=== PATIENT | female | born 1960 | race Caucasian/White ===

== ENCOUNTER → 2019-08-10 14:08 | Outpatient (BNVA) | payer MEDICARE, SELFPAY | PROVIDERS: Family Provider Internal Medicine; PCP Internal Medicine; Visit Provider Internal Medicine Rheumatology | DX: M34.0 Progressive systemic sclerosis (principal); M81.0 Age-related osteoporosis without current pathological fracture; Z23 Encounter for immunization; Z79.899 Other long term (current) drug therapy; R06.09 Other forms of dyspnea; R00.2 Palpitations; M35.8 Other specified systemic involvement of connective tissue; J84.89 Other specified interstitial pulmonary diseases; F17.210 Nicotine dependence, cigarettes, uncomplicated | CPT/HCPCS: 80053; 85007; 85027; 90686; 99214; G0008 ==

== ENCOUNTER 2019-08-20 09:06 | Outpatient (CLI) | payer MEDICARE, BC, SELFPAY ==
--- NOTE | 2019-08-20 09:30 | USCV_ITS ---
Rayray Degroot Age: 58 Gender: F : 1960 Exam Date: 08/20/2019 09:27 Ordering Phys: Poornima Gutierrez MD Technologist: Delbert Moon [place] [facility] [place]: SCLEADEMA BP: / HR: Rhythm: Sinus Technical Quality: Good MEASUREMENTS (Male / Female) Normal Values 2D ECHO LV Diastolic Diameter PLAX 4.0 cm 4.2 - 5.9 / 3.9 - 5.3 cm LV Systolic Diameter PLAX 2.0 cm IVS Diastolic Thickness 0.7 cm 0.6 - 1.0 / 0.6 - 0.9 cm IVS Systolic Thickness 1.2 cm LVPW Diastolic Thickness 0.8 cm 0.6 - 1.0 / 0.6 - 0.9 cm LVPW Systolic Thickness 0.8 cm LVOT Diameter 2.0 cm LV Ejection Fraction 2D Teich 82.4 % LV Ejection Fraction MOD 2C 49.2 % LV Ejection Fraction 2C AL 49.5 % LA Diameter 2.9 cm Aorta at Sinotubular Diameter 2.1 cm M-MODE LV Diastolic Diameter MM 4.4 cm 4.2 - 5.9 / 3.9 - 5.3 cm LV Systolic Diameter MM 2.6 cm LV Ejection Fraction MM Teich 70.1 % IVS Diastolic Thickness MM 0.8 cm 0.6 - 1.0 / 0.6 - 0.9 cm IVS Systolic Thickness MM 1.3 cm LVPW Diastolic Thickness MM 1.0 cm 0.6 - 1.0 / 0.6 - 0.9 cm LVPW Systolic Thickness MM 1.4 cm RV Diastolic Diameter MM 1.3 cm Aortic Annulus Diameter 2.7 cm LA Ao Ratio MM 1.1 MV E Point Septal Separation 1.2 cm DOPPLER AV Peak Velocity 134.0 cm/s LVOT Peak Velocity 97.0 cm/s AV Area Cont Eq vti 2.2 cm squared AV Area Cont Eq pk 2.3 cm squared MV Area PHT 3.7 cm squared Mitral E to A Ratio 0.9 MV E' Velocity 14.0 cm/s Mitral E to MV E' Ratio 4.5 Mitral E to LV E' Lateral Ratio 4.9 Mitral E to LV E' Septal Ratio 4.3 TR Peak Velocity 167.0 cm/s TR Peak Gradient 11.2 mmHg TV Peak E Velocity 76.0 cm/s Right Atrial Pressure 3.0 mmHg Pulmonary Artery Systolic Pressu 14.2 mmHg PV Peak Velocity 121.0 cm/s FINDINGS Left Ventricle Normal left ventricular size, systolic function and wall thickness, with no regional wall motion abnormalities. Normal left ventricular wall thickness. Normal diastolic filling pattern. Left ventricular ejection fraction is estimated at 55 %. Right Ventricle Normal right ventricular size and systolic function. Normal right ventricular systolic pressure. Right Atrium The right atrium is normal in size. Left Atrium The left atrium is normal in size. Mitral Valve Structurally normal mitral valve without significant stenosis or prolapse. There is no mitral regurgitation. Aortic Valve Structurally normal aortic valve without significant sclerosis or stenosis. There is no aortic regurgitation. Tricuspid Valve Structurally normal tricuspid valve without significant stenosis or regurgitation. Pulmonary artery systolic pressure is normal. Pulmonic Valve Pulmonic valve not well visualized. Pericardium Normal pericardium without effusion. Aorta Normal ascending aorta dimension. CONCLUSIONS Normal left ventricular size, systolic function and wall thickness, with no regional wall motion abnormalities. Normal left ventricular wall thickness. Normal diastolic filling pattern. Left ventricular ejection fraction is estimated at 55 %. No change from the previous 2 studies dictated 10/17/2016 and 11/17/2017. Dr. Matthew Ritter MD (Electronically Signed) Final Date: 20 August 2019 14:41 S
== END 2019-08-20 09:07 | disposition home or self-care (01) ==
PROVIDERS: Family Provider Internal Medicine; PCP Internal Medicine; Visit Provider Internal Medicine Rheumatology
DX: R06.09 Other forms of dyspnea (principal); R00.2 Palpitations; M34.9 Systemic sclerosis, unspecified
CPT/HCPCS: 93306

== ENCOUNTER → 2019-09-01 11:32 | Outpatient (BNVA) | payer MEDICARE, BC, SELFPAY | PROVIDERS: Family Provider Internal Medicine; PCP Internal Medicine; Visit Provider Urology | DX: N39.0 Urinary tract infection, site not specified (principal) | CPT/HCPCS: 81001; 87077; 87086; 87186 ==

== ENCOUNTER 2019-09-02 08:10 | Outpatient (CLI) | payer MEDICARE, BC, SELFPAY ==
--- NOTE | 2019-09-02 08:30 | CT_ITS ---
WS: [id number] HIGH-RESOLUTION CT CHEST TECHNIQUE: Noncontrast CT of the chest with coronal and sagittal reformatted images. High-resolution technique with inspiratory and expiratory imaging. Prone inspiratory imaging. CLINICAL INFORMATION: restrictive lung disease COMPARISON: CT chest and December 24, 2016 DLP: 622.[address] scans at [facility] use at least one of these dose optimization techniques: automat ed exposure control; mA and/or kV adjustment per patient size (includes targeted exams where dose is matched to clinical indication); or iterative reconstruction. FINDINGS: Mild chronic emphysematous changes. No significant interstitial lung disease seen today. No honeycomb ing to indicate interstitial pulmonary fibrosis. No acute appearing infiltrates. No consolidation or pleural fluid. No significant air trapping on the expiratory imaging. Lung bases are better aerated t renae compared to previous. Chronic granulomatous disease with calcified hilar and mediastinal lymph nodes. Multiple calcified gr anulomas. No mediastinal or hilar lymphadenopathy. Adrenal glands are normal. No axillary lymphadenop athy. Normal thyroid gland. Normal thoracic spine. Pulmonary nodule comparison to . Again seen are a few subcentimeter noncalcified pulmonary no dules in the right greater than left lungs. Largest noncalcified nodules measure 4 to 6 mm in the rig ht lower lobe and right middle lobe. These are unchanged since 2017 CT/CT chest [facility] [id number] IMPRESSION: 1. No significant interstitial lung disease. Lung bases are well aerated today . No evidence of honeycombing to indicate interstitial pulmonary fibrosis. 2. Mild chronic emphysematous changes. 3. No mediastinal or hilar lymphadenopathy. 4. Chronic granulomatous disease. 5. A few subcentimeter noncalcified pulmonary nodules unchanged since 2017. Re commend 12 month follow-up.
== END 2019-09-02 08:11 | disposition home or self-care (01) ==
LOC: RADWPI 08:13
PROVIDERS: Family Provider Internal Medicine; PCP Internal Medicine; Visit Provider Internal Medicine Critical Care Medicine
DX: M34.0 Progressive systemic sclerosis (principal)
CPT/HCPCS: 71250

== ENCOUNTER 2019-09-09 09:12 | Emergency (ER) | payer MEDICARE, BC, SELFPAY ==
[2019-09-09 09:28] VITALS: BP 121/66; PULSE 93; RESP 18; TEMP 37.1; O2SAT 97; BMI 21.6
--- NOTE | 2019-09-09 09:39 | XR_ITS ---
WS: [id number] XR chest 1V portable [id number] REASON FOR EXAM: right sided chest pain FINDINGS: The heart mediastinum interfaces normal. The lung vargas are well aerated. No pneumonia, pleural effusion, pulmonary edema, pneumothorax, or m ass effect. The hilum is and apices are normal. No osseous abnormalities. XR/XR chest 1V portable [id number] IMPRESSION: Negative chest for active pathology.
--- NOTE | 2019-09-09 09:39 | ECG_ITS ---
Measurements Intervals [place] Rate: 74 P: 74 FL: 155 QRS: 71 QRSD: 89 T: 48 QT: 372 QTc: 415 SINUS RHYTHM POSSIBLE RIGHT VENTRICULAR CONDUCTION DELAY [RSR (QR) IN V1/V2] Compared to ECG 11/14/2017 13:33:53 No significant changes Electronically Signed On 09-09-2019 16:57:11 [employer] WORK[employer] by Matthew Ritter M.D. [email or web address]
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
--- NOTE | 2019-09-09 09:40 | ED_ITS ---
HPI - Chest Pain General: Chief Complaint: Chest Pain Stated Complaint: stabing pain in chest and back Time Seen by Provider: 09/09/19 09:33 History of Present Illness: HPI narrative: Patient presents with a right sided musculoskeletal/chest pain that started 0 600 today. Patient denies shortness of breath diaphoresis patient does have pain with range of motion right arm to her right chest area hurts for her to take a deep breath hurts for her to lay down. Has history of scleroderma, GERD ,anxiety, SVT. Had CT of chest done last week. MD complaint: chest discomfort Onset (ago): hour(s) Timing of current episode: episodic Prior episodes: No Onset: awoke with symptoms Pain location: right chest Pain radiation: back and right shoulder Severity: moderate Quality: sharp Relieving factors: remaining still Exacerbating factors: movement Associated symptoms: Reports no associated symptoms; Deny abdominal pain, dyspnea, fever(s), nausea or vomiting Treatment prior to arrival: none Review of Systems Const: Denies: fever, chills or body aches Eyes: Denies: change in vision or blurry vision ENMT: Denies: throat pain or nasal congestion Card: Reports: chest pain; Denies: shortness of breath on exertion Resp: Denies: shortness of breath, productive cough or non-productive cough GI: Denies: abdominal pain, nausea or vomiting Musc: Denies: extremity pain Skin/Breast: Denies: rash Neuro: Denies: headache Psych: Denies: anxiety or depression Bakari/Lymph: Denies: easy bruising PFSH ED PFSH: Social History Smoking and tobacco status: current every day smoker cigarettes Packs smoked per day: 0.5 Years cigarettes smoked: 40 Quit status (tobacco): considering quitting Smoking risk assessment/counseling performed?: Yes Alcohol intake: never Lives independently: Yes Marital status: Single Current occupational status: retired History of recent travel: No Current gender identity: Female Physical Exam Const: COMMON NORMALS: no apparent distress, average body habitus and oriented x3 HENMT: COMMON NORMALS: normocephalic HEAD & SCALP: normal to inspection and normocephalic FACE & SINUS: normal facial exam Eye: COMMON NORMALS: conjunctivae normal GENERAL EYE: normal appearance of both eyes CONJUNCTIVA: Yes conjunctivae normal Neck/C-Spine: COMMON NORMALS: no JVD Chest: COMMONS NORMALS: inspection of chest normal CHEST: Yes other (Zorha frazier has reproducible pain right upper central chest. Has pain into the muscle of the right arm. Has pain in her right thoracic backside area.) Resp: COMMON NORMALS: normal respiratory effort and clear to auscultation bilaterally AUSCULTATION: clear to auscultation bilaterally Cardio: COMMON NORMALS: no JVD, regular rate and regular rhythm RATE: regular rate RHYTHM: regular rhythm GI: COMMON NORMALS: normal to inspection, nondistended, normoactive bowel sounds Extremity: COMMON NORMALS: normal to inspection and full ROM Neuro: COMMON NORMALS: oriented x3 Course Vital Signs: Vital signs: Vital Signs Temperature 98.7 F 09/09/19 09:28 Pulse Rate 76 09/09/19 09:48 Respiratory Rate 16 09/09/19 09:48 Blood Pressure 108/64 09/09/19 09:48 Pulse Oximetry 97 09/09/19 09:48 MDM - Chest Pain EKG Data^: EKG 1: EKG interpretation date: 09/09/19 EKG interpretation time: 09:48 Interpretation: NSR Discharge Plan Discharge Prescriptions: No Action nitrofurantoin monohyd/m-cryst [Macrobid] 100 mg capsule 100 mg PO BID Qty: 28 RF: 2 ergocalciferol (vitamin D2) 50,000 unit tablet 50,000 unit PO .WEEKLY RF: 0 celecoxib [Celebrex] 200 mg capsule 200 mg PO DAILY RF: 0 amitriptyline 25 mg tablet 25 mg PO .AT BEDTIME RF: 0 alprazolam 0.25 mg tablet 0.25 mg PO BID PRNRF: 0 metoprolol tartrate 25 mg tablet 12.5 mg PO BID RF: 0 citalopram 10 mg tablet 10 mg PO DAILY RF: 0 ascorbic acid (vitamin C) 1,000 mg tablet 1 gm PO DAILY RF: 0 multivitamin Tablet 1 tab PO DAILY RF: 0 mycophenolate mofetil [CellCept] 500 mg tablet 1,000 mg PO BID Qty: 120 RF: 2 Forteo 20 mcg/dose - 600 mcg/2.4 mL pen injector 20 mcg SUBCUT DAILY Qty: 2.4 RF: 11 omeprazole 20 mg capsule,delayed release(DR/EC) 20 mg PO BID Qty: 90 RF: 3 Coding Level of Care Code ED Flight Operation Coordinator for Chg Fwd Exam Comprehensive
[2019-09-09 09:48] VITALS: BP 108/64; PULSE 76; RESP 16; O2SAT 97
[2019-09-09] MEDS: ketorolac 60 mg/2 mL INJ IM (10:30)
[2019-09-09 10:52] VITALS: BP 104/44; PULSE 75; RESP 16; O2SAT 95
== END 2019-09-09 10:53 | disposition home or self-care (01) ==
PROVIDERS: Emergency Provider Nurse Practitioner Family; Family Provider Internal Medicine; PCP Internal Medicine
DX: R07.9 Chest pain, unspecified (principal); M25.511 Pain in right shoulder; M54.6 Pain in thoracic spine; F17.210 Nicotine dependence, cigarettes, uncomplicated
CPT/HCPCS: 12345; 71045; 72072; 93005; 96372; 99281; 99283; J1885

== ENCOUNTER → 2019-09-22 14:22 | Outpatient (BNVA) | payer MEDICARE, BC, SELFPAY | PROVIDERS: Family Provider Internal Medicine; PCP Internal Medicine; Visit Provider Specialist | DX: G43.909 Migraine, unspecified, not intractable, without status migrainosus (principal); F17.210 Nicotine dependence, cigarettes, uncomplicated | CPT/HCPCS: 99213 ==

== ENCOUNTER → 2019-11-16 08:48 | Outpatient (BNVA) | payer MEDICARE, BC, SELFPAY | PROVIDERS: Family Provider Internal Medicine; PCP Internal Medicine; Visit Provider Internal Medicine Rheumatology | DX: Z79.899 Other long term (current) drug therapy (principal); Z11.59 Encounter for screening for other viral diseases; Z11.1 Encounter for screening for respiratory tuberculosis; Z72.89 Other problems related to lifestyle | CPT/HCPCS: 36415; 80076; 82565; 85025; 85651; 86140; 86480; 86704; 86803; 87340 ==

== ENCOUNTER 2019-12-08 11:07 | Outpatient (CLI) | payer MEDICARE, BC, SELFPAY ==
--- NOTE | 2019-12-08 13:03 | PFTS_ITS ---
Date of Study:12/08/19 Date of Dictation: MECHANICS: Forced vital capacity (FVC) is Reduced. Forced expiratory volume in one second (FEV1) is Reduced . FEV1/FVC is Normal. FLOW VOLUME LOOP: Narrow. LUNG VOLUMES: Total lung capacity (TLC) isNormal . Residual volume (RV) is Normal . DIFFUSING CAPACITY FOR CARBON MONOXIDE: Normal. INTERPRETATION: The pulmonary function tests are Consistent with nonspecific ventilatory limitation. The spirometry is suggestive of mild restriction however total lung capacity is normal. Lung volumes are normal Gas exchange (DLCO) is Normal . MTDD
== END 2019-12-08 11:08 | disposition home or self-care (01) ==
LOC: RT 11:12
PROVIDERS: PCP Internal Medicine; Visit Provider Internal Medicine Critical Care Medicine
DX: M34.0 Progressive systemic sclerosis (principal)
CPT/HCPCS: 94060; 94726; 94729; J7611

== ENCOUNTER → 2020-03-08 14:42 | Outpatient (BNVA) | payer MEDICARE, BC, SELFPAY | PROVIDERS: PCP Internal Medicine; Visit Provider Internal Medicine | DX: M81.0 Age-related osteoporosis without current pathological fracture (principal); R21 Rash and other nonspecific skin eruption; F17.210 Nicotine dependence, cigarettes, uncomplicated; M34.0 Progressive systemic sclerosis | CPT/HCPCS: 99213 ==

== ENCOUNTER 2020-03-22 15:47 | Outpatient (CLI) | payer MEDICARE, BC, SELFPAY ==
--- NOTE | 2020-03-22 15:57 | MR_ITS ---
WS: [id number] MRI LEFT SHOULDER NONCONTRAST TECHNIQUE: Sagittal T2, coronal T1, T2 and proton density imaging. Axial gradient PDE imaging. CLINICAL INFORMATION: OSTEOPOROSIS COMPARISON: None. FINDINGS: Moderate degenerative arthritis AC joint. Mild downsloping of the acromion. Slight subacromial spurri ng. Rotator cuff is normal in appearance. No full-thickness rotator cuff tears. Normal distal suprasp inatus. Normal infraspinatus. Normal teres minor and subscapularis. Normal biceps tendon in the bicipital groove. Normal biceps labral anchor. Glenoid labrum is normal i n appearance. Mild degenerative fraying of the glenoid labrum. Normal soft tissues. MR/MR shoulder LT wo con* [id number] IMPRESSION: 1. Moderate degenerative arthritis at the AC joint with mild edema. 2. Rotator cuff is normal in appearance. 3. Normal biceps tendon in the bicipital groove. 4. Degenerative fraying of the glenoid labrum.
== END 2020-03-22 15:48 | disposition home or self-care (01) ==
LOC: RADWPI 15:51
PROVIDERS: PCP Internal Medicine; Visit Provider Internal Medicine
DX: M81.0 Age-related osteoporosis without current pathological fracture (principal); M19.012 Primary osteoarthritis, left shoulder; R60.0 Localized edema
CPT/HCPCS: 73221

== ENCOUNTER → 2020-03-28 12:29 | Outpatient (BNVA) | payer MEDICARE, BC, SELFPAY | PROVIDERS: PCP Internal Medicine; Visit Provider Specialist | DX: G62.89 Other specified polyneuropathies (principal); M34.0 Progressive systemic sclerosis; G43.711 Chronic migraine without aura, intractable, with status migrainosus; F17.210 Nicotine dependence, cigarettes, uncomplicated | CPT/HCPCS: 99213 ==

== ENCOUNTER → 2020-04-12 10:55 | Outpatient (BNVA) | payer MEDICARE, BC, SELFPAY | PROVIDERS: PCP Internal Medicine; Visit Provider Specialist | DX: M25.552 Pain in left hip (principal) | CPT/HCPCS: 73502 ==

== ENCOUNTER → 2020-04-13 10:53 | Outpatient (BNVA) | payer MEDICARE, BC, SELFPAY | PROVIDERS: PCP Internal Medicine; Visit Provider Internal Medicine | DX: Z79.899 Other long term (current) drug therapy (principal) | CPT/HCPCS: 36415; 80053; 85025; 85651; 86140; 86160 ==

== ENCOUNTER → 2020-06-07 11:27 | Outpatient (BNVA) | payer MEDICARE, BC, SELFPAY | PROVIDERS: PCP Internal Medicine; Visit Provider Internal Medicine | DX: M34.0 Progressive systemic sclerosis (principal); M81.0 Age-related osteoporosis without current pathological fracture; Z87.310 Personal history of (healed) osteoporosis fracture; F17.210 Nicotine dependence, cigarettes, uncomplicated | CPT/HCPCS: 99213 ==

== ENCOUNTER 2020-06-13 15:06 | Outpatient (CLI) | payer MEDICARE, SELFPAY ==
--- NOTE | 2020-06-13 15:13 | MM_ITS ---
WS: [id number] BILATERAL SCREENING DIGITAL MAMMOGRAM WITH CAD HISTORY: SCREENING COMPARISON: 05/28/2013 and 04/08/2006 Bilateral CC and MLO views submitted. Computer aided detection analyzed. Breast composition: There are scattered areas of fibroglandular density. No suspicious masses, microc alcifications or architectural distortion. MM/[place] [id number] IMPRESSION: BI-RADS: 2-Benign FOLLOW UP: 1 Year Follow-up
--- NOTE | 2020-06-13 15:53 | XR_ITS ---
WS: [id number] SCREENING DEXA SCAN [place] CLINICAL INFORMATION: OSTEOPOROSIS COMPARISON: 2016 FINDINGS: The L1-L4 bone mineral density measures 0.838 g/cm2. This corresponds to a T score score of -2.8 and Z score of -1.3. Left forearm bone mineral density 0.704 g/cm2 with aT score of -2.0 and Z score of -1.0 XR/XR DEXA axial skeleton* [id number] IMPRESSION: Osteoporosis of the lumbar spine. Osteopenia in the forearm.
== END 2020-06-13 15:07 | disposition home or self-care (01) ==
LOC: RADSHAW 15:11
PROVIDERS: PCP Internal Medicine; Visit Provider Family Medicine
DX: Z12.31 Encounter for screening mammogram for malignant neoplasm of breast (principal); M81.0 Age-related osteoporosis without current pathological fracture
CPT/HCPCS: 77067; 77080

== ENCOUNTER → 2020-08-28 09:28 | Outpatient (BNVA) | payer MEDICARE, BC, SELFPAY | PROVIDERS: PCP Internal Medicine; Visit Provider Urology | DX: N39.0 Urinary tract infection, site not specified (principal) | CPT/HCPCS: 81003; 87077; 87086; 87184 ==

== ENCOUNTER → 2020-08-30 13:12 | Outpatient (BNVA) | payer MEDICARE, BC, SELFPAY | PROVIDERS: PCP Internal Medicine; Visit Provider Internal Medicine | DX: M34.0 Progressive systemic sclerosis (principal); M35.89 Other specified systemic involvement of connective tissue; J84.89 Other specified interstitial pulmonary diseases; D89.9 Disorder involving the immune mechanism, unspecified; K21.9 Gastro-esophageal reflux disease without esophagitis; M81.0 Age-related osteoporosis without current pathological fracture; F17.210 Nicotine dependence, cigarettes, uncomplicated | CPT/HCPCS: 99214 ==

== ENCOUNTER 2020-09-05 08:08 | Outpatient (CLI) | payer MEDICARE, BC, SELFPAY ==
--- NOTE | 2020-09-05 08:30 | CT_ITS ---
WS: [id number] CT CHEST TECHNIQUE: Noncontrast CT of the chest with coronal and sagittal reformatted images. CLINICAL INFORMATION: R06.02 - Shortness of breath COMPARISON: CT chest August 2019, November 2017, December 2016 DLP: 571.[address] scans at [facility] use at least one of these dose optimization techniques: automat ed exposure control; mA and/or kV adjustment per patient size (includes targeted exams where dose is matched to clinical indication); or iterative reconstruction. FINDINGS: Mild chronic emphysematous changes. No significant pulmonary infiltrates. No consolidation or pleural fluid. Chronic granulomatous disease with calcified hilar and mediastinal lymph nodes. Multiple calc ified granulomas. No mediastinal or hilar lymphadenopathy. Again seen are a few subcentimeter noncalc ified pulmonary nodules in the right greater than left lungs. Largest noncalcified nodules measure 4 to 6 mm in the right lower lobe and right middle lobe. These are unchanged since 2017 Adrenal glands are normal. No axillary lymphadenopathy. Normal thyroid gland. Normal thoracic spine. Aberrant right subclavian artery. CT/CT chest [facility] [id number] IMPRESSION: 1. No significant interval changes compared to September 02, 2019. 2. Mild chronic emphysematous changes. No acute pulmonary infiltrates. 3. No mediastinal or hilar lymphadenopathy. Chronic granulomatous disease. 4. A few subcentimeter noncalcified pulmonary nodules are unchanged since 2016 .
--- NOTE | 2020-09-05 08:45 | CT_ITS ---
WS: [id number] CT NECK TECHNIQUE: Noncontrast CT of the neck with coronal and sagittal reformatted images. CLINICAL INFORMATION: K21.9 - Gastro-esophageal reflux disease without esophagitis COMPARISON: CT neck 1 15,018 DLP: 1144.[address] scans at [facility] use at least one of these dose optimization techniques: automat ed exposure control; mA and/or kV adjustment per patient size (includes targeted exams where dose is matched to clinical indication); or iterative reconstruction. FINDINGS: Normal parotid glands. Normal submandibular glands. Tongue base images are degraded due to dental art ifact. No evidence of supraglottic or glottic mass. Normal piriform sinuses. Subglottic airway is pat ent. No cervical lymphadenopathy. Lung apices are well aerated. Mastoid air cells and paranasal sinuses are well aerated. Moderate spon dylitic changes cervical spine. Slight anterolisthesis C3 on C4 and C4 on C5. Aberrant retroesophagea l right subclavian artery. CT/CT neck wo con [id number] IMPRESSION: 1. Salivary glands are normal in appearance. 2. No evidence of supraglottic or glottic mass. 3. No cervical lymphadenopathy. 4. Aberrant retroesophageal right subclavian artery.
== END 2020-09-05 08:09 | disposition home or self-care (01) ==
LOC: RADWPI 08:09
PROVIDERS: PCP Internal Medicine; Visit Provider Internal Medicine
DX: R06.02 Shortness of breath (principal); K21.9 Gastro-esophageal reflux disease without esophagitis
CPT/HCPCS: 70490; 71250

== ENCOUNTER → 2020-09-26 10:44 | Outpatient (BNVA) | payer MEDICARE, BC, SELFPAY | PROVIDERS: PCP Internal Medicine; Visit Provider Urology | DX: N39.0 Urinary tract infection, site not specified (principal) | CPT/HCPCS: 81003; 87077; 87086; 87184 ==

== ENCOUNTER → 2020-09-27 11:08 | Outpatient (BNVA) | payer MEDICARE, BC, SELFPAY | PROVIDERS: PCP Internal Medicine; Visit Provider Specialist | DX: G43.711 Chronic migraine without aura, intractable, with status migrainosus (principal); F17.210 Nicotine dependence, cigarettes, uncomplicated | CPT/HCPCS: 99213 ==

== ENCOUNTER → 2020-10-12 14:12 | Outpatient (BNVA) | payer MEDICARE, BC, SELFPAY | PROVIDERS: PCP Internal Medicine; Visit Provider Nurse Practitioner Family | DX: N39.0 Urinary tract infection, site not specified (principal); F17.210 Nicotine dependence, cigarettes, uncomplicated | CPT/HCPCS: 81003 ==

== ENCOUNTER → 2020-11-13 11:21 | Outpatient (BNVA) | payer MEDICARE, BC, SELFPAY | PROVIDERS: PCP Internal Medicine; Visit Provider Nurse Practitioner Family | DX: N39.0 Urinary tract infection, site not specified (principal) | CPT/HCPCS: 81003; 87077; 87086; 87184 ==

== ENCOUNTER → 2020-11-14 08:51 | Outpatient (BNVA) | payer MEDICARE, BC, SELFPAY | PROVIDERS: PCP Internal Medicine; Visit Provider Internal Medicine | DX: Z79.899 Other long term (current) drug therapy (principal); J84.89 Other specified interstitial pulmonary diseases; M34.0 Progressive systemic sclerosis; M35.8 Other specified systemic involvement of connective tissue; M81.0 Age-related osteoporosis without current pathological fracture | CPT/HCPCS: 36415; 80053; 85025; 85651; 86140 ==

== ENCOUNTER → 2020-11-20 12:56 | Outpatient (BNVA) | payer MEDICARE, BC, SELFPAY | PROVIDERS: PCP Internal Medicine; Visit Provider Internal Medicine | DX: M34.0 Progressive systemic sclerosis (principal); N39.0 Urinary tract infection, site not specified; M81.0 Age-related osteoporosis without current pathological fracture; F17.210 Nicotine dependence, cigarettes, uncomplicated | CPT/HCPCS: 99214 ==

== ENCOUNTER 2020-12-18 12:56 | Outpatient (CLI) | payer MEDICARE, BC, SELFPAY ==
[2020-12-18 13:25] VITALS: BP 105/48; PULSE 78; RESP 16; TEMP 36.7; O2SAT 100
[2020-12-18] MEDS: denosumab 60 mg SDV SUBCUT (13:41)
[2020-12-18 14:41] LABS: 25 Hydroxy Vitamin D 42 ng/mL (30-100)
== END 2020-12-18 12:57 | disposition home or self-care (01) ==
PROVIDERS: PCP Internal Medicine; Referring Provider Internal Medicine; Visit Provider Internal Medicine
DX: M81.0 Age-related osteoporosis without current pathological fracture (principal)
CPT/HCPCS: 82306; 96372; J0897

== ENCOUNTER → 2021-01-18 14:44 | Outpatient (BNVA) | payer MEDICARE, BC, SELFPAY | PROVIDERS: PCP Internal Medicine; Visit Provider Internal Medicine Critical Care Medicine | DX: Z01.812 Encounter for preprocedural laboratory examination (principal); Z20.822 Contact with and (suspected) exposure to COVID-19 | CPT/HCPCS: 87635 ==

== ENCOUNTER 2021-01-24 09:45 | Outpatient (CLI) | payer MEDICARE, BC, SELFPAY ==
--- NOTE | 2021-01-24 10:15 | USCV_ITS ---
Zane Chayachirstina Age: 60 Gender: F : 1960 Exam Date: 01/24/2021 10:14 Ordering Phys: Joann Palomo MD Technologist: [place] [facility] [place]: RT HEART PRESURE BP: 128 / 73 HR: 65 Rhythm: Sinus Technical Quality: Fair MEASUREMENTS (Male / Female) Normal Values 2D ECHO LV Diastolic Diameter PLAX 3.8 cm 4.2 - 5.9 / 3.9 - 5.3 cm LV Systolic Diameter PLAX 2.6 cm IVS Diastolic Thickness 0.8 cm 0.6 - 1.0 / 0.6 - 0.9 cm IVS Systolic Thickness 1.3 cm LVPW Diastolic Thickness 0.8 cm 0.6 - 1.0 / 0.6 - 0.9 cm LVPW Systolic Thickness 1.0 cm LVOT Diameter 1.9 cm LV Ejection Fraction 2D Teich 62.4 % LV Ejection Fraction MOD 2C 61.2 % LV Ejection Fraction 2C AL 60.8 % LA Diameter 2.8 cm LA Width 2.9 cm LA Height 4.0 cm RA Width 3.3 cm RA Height 2.9 cm Aorta at Sinotubular Diameter 2.4 cm DOPPLER AV Peak Velocity 117.7 cm/s LVOT Peak Velocity 75.0 cm/s AV Area Cont Eq vti 1.8 cm squared AV Area Cont Eq pk 1.9 cm squared MV Area PHT 5.0 cm squared Mitral E to A Ratio 0.9 MV E' Velocity 39.5 cm/s Mitral E to MV E' Ratio 8.2 Mitral E to LV E' Lateral Ratio 8.3 Mitral E to LV E' Septal Ratio 8.1 TR Peak Velocity 199.7 cm/s TR Peak Gradient 15.9 mmHg PV Peak Velocity 53.0 cm/s FINDINGS Left Ventricle Normal left ventricular cavity size. Normal left ventricular systolic function. Left ventricular ejection fraction is estimated at 55 %. Grade I/IV diastolic dysfunction (abnormal relaxation filling pattern), normal to mildly elevated filling pressures. Right Ventricle The right ventricle is normal in size and function. Right Atrium The right atrium is normal in size. Left Atrium The left atrium is normal in size. Mitral Valve Structurally normal mitral valve without significant stenosis or prolapse. There is no mitral regurgitation. Aortic Valve Structurally normal aortic valve without significant sclerosis or stenosis. There is no aortic regurgitation. Tricuspid Valve Structurally normal tricuspid valve without significant stenosis or regurgitation. Pulmonary artery systolic pressure is normal. Pulmonic Valve Structurally normal pulmonic valve without significant stenosis. There is no pulmonic regurgitation. Pericardium Normal pericardium without effusion. Aorta Normal ascending aorta dimension. CONCLUSIONS 1-Normal left ventricular cavity size. Normal left ventricular systolic function. Left ventricular ejection fraction is estimated at 55 %. Grade I/IV diastolic dysfunction (abnormal relaxation filling pattern), normal to mildly elevated filling pressures. 2-There is no pericardial effusion. 3-No significant valve abnormalities. 4-Pulmonary artery systolic pressure is within normal limits. 5-Right atrial pressure is around 5 mm of mercury. 6-No significant change since the prior echocardiogram study of 08/20/2019. Di Reina MD (Electronically Signed) Final Date: 25 January 2021 16:35 S
--- NOTE | 2021-01-24 13:30 | PFTS_ITS ---
Date of Study:01/24/21 Date of Dictation: 02/02/21 MECHANICS: Prebronchodilator forced vital capacity (FVC) is reduced. . Prebronchodilator forced expiratory volume in one second (FEV1) is reduced. FEV1/FVC is normal. There is no postbronchodilator study FLOW VOLUME LOOP: normal. LUNG VOLUMES: Not measured DIFFUSING CAPACITY FOR CARBON MONOXIDE: normal. . INTERPRETATION: The Prebronchodilator spirometry shows moderate restriction. Lung volumes not measured. Gas transfer is normal. Correlate clinically. MTDD
== END 2021-01-24 09:46 | disposition home or self-care (01) ==
LOC: RAD 09:46
PROVIDERS: PCP Internal Medicine; Visit Provider Internal Medicine Critical Care Medicine
DX: M34.9 Systemic sclerosis, unspecified (principal)
CPT/HCPCS: 93306; 94010; 94729

== ENCOUNTER → 2021-02-01 11:06 | Outpatient (BNVA) | payer MEDICARE, BC, SELFPAY | PROVIDERS: PCP Internal Medicine; Visit Provider Internal Medicine | DX: D89.9 Disorder involving the immune mechanism, unspecified (principal); M81.0 Age-related osteoporosis without current pathological fracture; Z51.81 Encounter for therapeutic drug level monitoring; Z79.899 Other long term (current) drug therapy | CPT/HCPCS: 36415; 80053; 85025; 85651; 86140 ==

== ENCOUNTER → 2021-02-07 14:30 | Outpatient (BNVA) | payer MEDICARE, BC, SELFPAY | PROVIDERS: PCP Internal Medicine; Visit Provider Internal Medicine | DX: M34.0 Progressive systemic sclerosis (principal); M35.89 Other specified systemic involvement of connective tissue; J84.89 Other specified interstitial pulmonary diseases; K21.9 Gastro-esophageal reflux disease without esophagitis; I73.00 Raynaud's syndrome without gangrene; R53.83 Other fatigue; Z51.81 Encounter for therapeutic drug level monitoring; D89.9 Disorder involving the immune mechanism, unspecified; R21 Rash and other nonspecific skin eruption; Z79.899 Other long term (current) drug therapy; F17.200 Nicotine dependence, unspecified, uncomplicated | CPT/HCPCS: 36415; 84439; 84443; 99214 ==

== ENCOUNTER → 2021-03-07 15:30 | Outpatient (BNVA) | payer MEDICARE, BC, SELFPAY | PROVIDERS: PCP Internal Medicine; Visit Provider Urology | DX: N39.0 Urinary tract infection, site not specified (principal) | CPT/HCPCS: 81003 ==

== ENCOUNTER → 2021-04-04 10:00 | Outpatient (BNVA) | payer MEDICARE, BC, SELFPAY | PROVIDERS: PCP Internal Medicine; Visit Provider Specialist | DX: G43.711 Chronic migraine without aura, intractable, with status migrainosus (principal); F41.9 Anxiety disorder, unspecified | CPT/HCPCS: 99213; 99214 ==

== ENCOUNTER → 2021-04-12 13:05 | Outpatient (BNVA) | payer MEDICARE, BC, SELFPAY | PROVIDERS: PCP Internal Medicine; Visit Provider Nurse Practitioner Family | DX: N39.0 Urinary tract infection, site not specified (principal) | CPT/HCPCS: 81003 ==

== ENCOUNTER 2021-06-11 13:54 | Outpatient (CLI) | payer MEDICARE, BC, SELFPAY ==
[2021-06-11 17:04] LABS: Albumin Level 4.2 g/dL (3.5-5.2); Calcium 8.6 mg/dL (8.5-10.5); Glomerular Filtration Rate 85.1 mL/min (90-130)
[2021-06-11 17:11] LABS: 25 Hydroxy Vitamin D 95 ng/mL (30-100)
== END 2021-06-11 13:55 | disposition home or self-care (01) ==
LOC: ONCMED 13:59
PROVIDERS: PCP Internal Medicine; Visit Provider Internal Medicine
DX: M81.0 Age-related osteoporosis without current pathological fracture (principal); Z79.899 Other long term (current) drug therapy
CPT/HCPCS: 36415; 82040; 82306; 82310; 82565

== ENCOUNTER 2021-06-20 10:57 | Outpatient (CLI) | payer MEDICARE, BC, SELFPAY ==
[2021-06-20 11:50] VITALS: BP 109/65; PULSE 97; RESP 18; TEMP 37.4; O2SAT 98
[2021-06-20] MEDS: denosumab 60 mg SDV SUBCUT (11:50)
[2021-06-20 11:59] VITALS: BP 115/55; PULSE 93; RESP 18; TEMP 37; O2SAT 97
== END 2021-06-20 10:58 | disposition home or self-care (01) ==
LOC: ONCMED 10:58
PROVIDERS: PCP Internal Medicine; Visit Provider Internal Medicine
DX: M34.0 Progressive systemic sclerosis (principal); F17.210 Nicotine dependence, cigarettes, uncomplicated; M81.0 Age-related osteoporosis without current pathological fracture; Z79.899 Other long term (current) drug therapy; K21.9 Gastro-esophageal reflux disease without esophagitis; R00.2 Palpitations; M35.89 Other specified systemic involvement of connective tissue; J84.89 Other specified interstitial pulmonary diseases; D89.9 Disorder involving the immune mechanism, unspecified
CPT/HCPCS: 36415; 80053; 80061; 81001; 83036; 83735; 84443; 85025; 85651; 86140; 87086; 96372; 99214; J0897

== ENCOUNTER → 2021-07-17 13:48 | Outpatient (BNVA) | payer MEDICARE, BC, SELFPAY | PROVIDERS: PCP Internal Medicine; Visit Provider Urology | DX: N39.0 Urinary tract infection, site not specified (principal) | CPT/HCPCS: 81003; 87086 ==

== ENCOUNTER → 2021-09-07 09:30 | Outpatient (BNVA) | payer MEDICARE, BC, SELFPAY | PROVIDERS: PCP Internal Medicine; Visit Provider Internal Medicine Critical Care Medicine | DX: M34.0 Progressive systemic sclerosis; R00.0 Tachycardia, unspecified; R00.2 Palpitations; F17.210 Nicotine dependence, cigarettes, uncomplicated; R09.89 Other specified symptoms and signs involving the circulatory and respiratory systems | CPT/HCPCS: 71046; 80053; 85025; 99214 ==

== ENCOUNTER → 2021-09-11 11:16 | Outpatient (BNVA) | payer MEDICARE, BC, SELFPAY | PROVIDERS: PCP Internal Medicine; Visit Provider Internal Medicine | DX: M34.0 Progressive systemic sclerosis (principal); R06.02 Shortness of breath; Z79.899 Other long term (current) drug therapy; F17.210 Nicotine dependence, cigarettes, uncomplicated | CPT/HCPCS: 99214 ==

== ENCOUNTER → 2021-10-09 13:20 | Outpatient (BNVA) | payer MEDICARE, BC, SELFPAY | PROVIDERS: PCP Family Medicine; Visit Provider Internal Medicine Cardiovascular Disease | DX: R00.2 Palpitations (principal); F17.218 Nicotine dependence, cigarettes, with other nicotine-induced disorders; J84.89 Other specified interstitial pulmonary diseases | CPT/HCPCS: 99214 ==

== ENCOUNTER 2021-10-19 06:01 | Outpatient (CLI) | payer MEDICARE, BC, SELFPAY ==
--- NOTE | 2021-10-19 | USCV_ITS ---
Rayray Degroot Age: 60 Gender: F : 1960 Exam Date: 10/19/2021 06:16 Ordering Phys: Joann Palomo MD Technologist: Bettye Etienne [place]am Location[place] [facility] [place]ication: SCLERODEMA PROGRESSIVE BP: 151 / 81 HR: 77 Rhythm: Sinus Technical Quality: Adequate MEASUREMENTS (Male / Female) Normal Values 2D ECHO LV Diastolic Diameter PLAX 3.8 cm 4.2 - 5.9 / 3.9 - 5.3 cm LV Systolic Diameter PLAX 2.4 cm LV Chamber Size 3.0 cm IVS Diastolic Thickness 1.0 cm 0.6 - 1.0 / 0.6 - 0.9 cm IVS Systolic Thickness 0.9 cm LVPW Diastolic Thickness 1.0 cm 0.6 - 1.0 / 0.6 - 0.9 cm LVPW Systolic Thickness 0.9 cm RV Chamber Size 2.5 cm LVOT Diameter 2.0 cm LV Ejection Fraction 2D Teich 65.2 % LV Ejection Fraction MOD 2C 54.3 % LV Ejection Fraction 2C AL 54.0 % LA Diameter 2.6 cm LA Width 2.4 cm LA Height 3.4 cm RA Width 2.8 cm RA Height 3.0 cm Aorta at Sinotubular Diameter 2.5 cm M-MODE Aortic Annulus Diameter 2.9 cm LA Ao Ratio MM 1.1 MV E Point Septal Separation 0.4 cm DOPPLER AV Peak Velocity 143.0 cm/s LVOT Peak Velocity 91.0 cm/s AV Area Cont Eq vti 1.9 cm squared AV Area Cont Eq pk 2.0 cm squared MV Area PHT 3.6 cm squared Mitral E to A Ratio 1.1 MV E' Velocity 44.0 cm/s Mitral E to MV E' Ratio 5.7 Mitral E to LV E' Lateral Ratio 6.4 Mitral E to LV E' Septal Ratio 5.2 TR Peak Velocity 155.1 cm/s TR Peak Gradient 9.6 mmHg TR Mean Velocity 137.6 cm/s TR Mean Gradient 8.5 mmHg TR Velocity Time Integral 52.7 cm TV Peak E Velocity 65.0 cm/s Right Atrial Pressure 3.0 mmHg Pulmonary Artery Systolic Pressu 12.6 mmHg PV Peak Velocity 71.0 cm/s RV Acceleration Time 0.1 s RV Ejection Time 0.3 s RV AcT/ET 0.5 FINDINGS Left Ventricle Normal left ventricular size, systolic function and wall thickness, with no regional wall motion abnormalities. Left ventricular ejection fraction is estimated at 58 %. Normal diastolic function. Right Ventricle Normal right ventricular size and systolic function. Right ventricular systolic pressure 19 mmHg. Right Atrium Normal right atrial size. Left Atrium Normal left atrial size. Mitral Valve Mildly thickened mitral valve. No mitral valve stenosis. Trace mitral valve regurgitation. Aortic Valve Structurally normal trileaflet aortic valve. No aortic valve stenosis. No aortic valve regurgitation. Tricuspid Valve Structurally normal tricuspid valve. No tricuspid valve stenosis. Trace tricuspid valve regurgitation. Pulmonic Valve Pulmonic valve not well visualized. No pulmonary valve stenosis. Trace pulmonary valve regurgitation. Pericardium No pericardial effusion. Aorta Normal size aortic root and proximal ascending aorta. CONCLUSIONS 1. Normal left ventricular size, systolic function and wall thickness, with no regional wall motion abnormalities. Left ventricular ejection fraction is estimated at 58 %. Normal diastolic function. 2. Pulmonary artery pressure estimated at 19 mm Hg. 3. Trace mitral and tricuspid valve regurgitation. 4. When compared to previous study dated 01/25/21, there may not have been any significant change. Orly Mccabe MD (Electronically Signed) Final Date: 21 October 2021 07:46 S
== END 2021-10-19 06:02 | disposition home or self-care (01) ==
LOC: RAD 06:03
PROVIDERS: PCP Family Medicine; Visit Provider Internal Medicine Critical Care Medicine
DX: R06.02 Shortness of breath (principal); R00.0 Tachycardia, unspecified; R42 Dizziness and giddiness; I08.1 Rheumatic disorders of both mitral and tricuspid valves
CPT/HCPCS: 93306

== ENCOUNTER 2021-10-25 13:13 | Outpatient (CLI) | payer MEDICARE, BC, SELFPAY ==
--- NOTE | 2021-10-25 12:47 | PFTS_ITS ---
Date of Study:10/25/21 Date of Dictation: MECHANICS: Forced vital capacity (FVC) is normal. Forced expiratory volume in one second (FEV1) is normal. FEV1/FVC is normal. FLOW VOLUME LOOP: Scooping present. LUNG VOLUMES: Total lung capacity (TLC) is normal. Residual volume (RV) is normal. DIFFUSING CAPACITY FOR CARBON MONOXIDE: Normal. INTERPRETATION: The postbronchodilator spirometry is normal. There is some postbronchodilator response which does not reach steady state of significance. Flow volume loop is consistent with small airways disease. Lung volumes are normal. Gas exchange (DLCO) is normal. MTDD
== END 2021-10-25 13:14 | disposition home or self-care (01) ==
LOC: RT 13:17
PROVIDERS: PCP Family Medicine; Visit Provider Internal Medicine Critical Care Medicine
DX: R06.02 Shortness of breath (principal)
CPT/HCPCS: 94060; 94726; 94729; J7611

== ENCOUNTER → 2021-11-23 10:28 | Outpatient (BNVA) | payer MEDICARE, BC, SELFPAY | PROVIDERS: PCP Family Medicine; Visit Provider Nurse Practitioner Family | DX: N39.0 Urinary tract infection, site not specified (principal) | CPT/HCPCS: 81003; 87077; 87086; 87186; 99213 ==

== ENCOUNTER → 2021-12-19 11:38 | Outpatient (BNVA) | payer MEDICARE, BC, SELFPAY | PROVIDERS: PCP Family Medicine; Visit Provider Internal Medicine | DX: M34.9 Systemic sclerosis, unspecified (principal); R20.0 Anesthesia of skin; R21 Rash and other nonspecific skin eruption; R00.2 Palpitations; Z79.899 Other long term (current) drug therapy; F17.210 Nicotine dependence, cigarettes, uncomplicated | CPT/HCPCS: 36415; 71046; 80053; 81001; 83735; 84443; 85025; 85651; 86140; 99214 ==

== ENCOUNTER 2021-12-24 09:29 | Outpatient (CLI) | payer MEDICARE, BC, SELFPAY ==
[2021-12-24 09:50] VITALS: BP 112/74; PULSE 93; RESP 18; TEMP 36.6; O2SAT 98
[2021-12-24] MEDS: denosumab 60 mg SDV SUBCUT (10:03)
[2021-12-24 10:12] VITALS: BP 107/67; PULSE 88; RESP 18; TEMP 36.9; O2SAT 94
== END 2021-12-24 09:30 | disposition home or self-care (01) ==
PROVIDERS: PCP Family Medicine; Referring Provider Internal Medicine; Visit Provider Internal Medicine
DX: F17.210 Nicotine dependence, cigarettes, uncomplicated (principal)
CPT/HCPCS: 96372; 99213; J0897

== ENCOUNTER → 2021-12-26 11:47 | Outpatient (BNVA) | payer MEDICARE, BC, SELFPAY | PROVIDERS: PCP Family Medicine; Visit Provider Family Medicine | DX: N39.0 Urinary tract infection, site not specified (principal); R00.0 Tachycardia, unspecified | CPT/HCPCS: 81003; 87086 ==

== ENCOUNTER → 2022-01-03 09:57 | Outpatient (BNVA) | payer MEDICARE, BC, SELFPAY | PROVIDERS: PCP Family Medicine; Visit Provider Internal Medicine Cardiovascular Disease | DX: R00.0 Tachycardia, unspecified (principal) | CPT/HCPCS: 93005 ==

== ENCOUNTER → 2022-01-21 10:30 | Outpatient (BNVA) | payer MEDICARE, BC, SELFPAY | PROVIDERS: PCP Family Medicine; Visit Provider Internal Medicine Critical Care Medicine | DX: R09.89 Other specified symptoms and signs involving the circulatory and respiratory systems (principal); F17.210 Nicotine dependence, cigarettes, uncomplicated; R00.0 Tachycardia, unspecified | CPT/HCPCS: 99214 ==

== ENCOUNTER → 2022-02-15 10:23 | Outpatient (BNVA) | payer MEDICARE, BC, SELFPAY | PROVIDERS: PCP Family Medicine; Visit Provider Internal Medicine Cardiovascular Disease | DX: R00.2 Palpitations (principal); M34.9 Systemic sclerosis, unspecified; F17.218 Nicotine dependence, cigarettes, with other nicotine-induced disorders | CPT/HCPCS: 99213; 99214 ==

== ENCOUNTER 2022-02-19 14:21 | Outpatient (CLI) | payer MEDICARE, BC, SELFPAY ==
--- NOTE | 2022-02-19 14:35 | CT_ITS ---
WS: [email or web address] LDCT LUNG CANCER SCREENING TECHNIQUE: Noncontrast CT of the chest with coronal and sagittal reformatted images. CLINICAL INFORMATION: Lung cancer screening COMPARISON: CT chest September 05, 2020 DLP: 72.61 mGy.cm DIvol: Mean CTDIvol: 1.60 (mGy) All CT scans at [facility] use at least one of these dose optimization techniques: automat ed exposure control; mA and/or kV adjustment per patient size (includes targeted exams where dose is matched to clinical indication); or iterative reconstruction. FINDINGS: Mild chronic emphysematous changes. Chronic granulomatous disease with calcified hilar and mediastina l lymph nodes. Multiple calcified granulomas. No mediastinal or hilar lymphadenopathy. A few subcentimeter noncalcified pulmonary nodules in the right greater than left lungs. Largest nonc alcified nodules measure 4 to 6 mm in the right lower lobe and right middle lobe unchanged since 2017 . No new suspicious pulmonary parenchymal opacities. Adrenal glands are normal. No axillary lymphadenopathy. Tiny esophageal hiatal hernia. Aberrant RIGHT subclavian artery. CT/CT lung screening [id number] IMPRESSION: LUNG-RADS: 2-Benign Appearance or Behavior FOLLOW UP: 12 Month: Continue annual screening with LDCT
--- NOTE | 2022-02-19 14:35 | CTR_ITS ---
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 Radiation optimization: All CT scans at this facility use at least one of these dose optimization techniques: automated exposure control; mA and/or kV adjustment per patient size (includes targeted exams where dose is matched to clinical indication); or iterative reconstruction. COMPARISON: CT head wo con* [id number] 07/08/2017 11:18 PM RADIATION DOSE METRICS: Total DLP (mGy-cm): 1022.88 FINDINGS: Brain: Normal. No hemorrhage. Unremarkable white matter. No mass effect. Cerebral ventricles: No ventriculomegaly. Paranasal sinuses: Visualized sinuses are unremarkable. No fluid levels. Mastoid air cells: Visualized mastoid air cells are well aerated. Bones/joints: Unremarkable. No acute fracture. Soft tissues: Unremarkable. CT/CT head wo con* [id number] IMPRESSION: No acute intracranial abnormality.
== END 2022-02-19 14:22 | disposition home or self-care (01) ==
LOC: RAD 14:22
PROVIDERS: PCP Family Medicine; Visit Provider Internal Medicine Critical Care Medicine
DX: G43.909 Migraine, unspecified, not intractable, without status migrainosus (principal); R20.0 Anesthesia of skin; R21 Rash and other nonspecific skin eruption; Z12.2 Encounter for screening for malignant neoplasm of respiratory organs; F17.218 Nicotine dependence, cigarettes, with other nicotine-induced disorders
CPT/HCPCS: 70450; 71271

== ENCOUNTER 2022-02-22 13:36 | Outpatient (CLI) | payer MEDICARE, BC, SELFPAY ==
--- NOTE | 2022-02-22 13:45 | USCV_ITS ---
Rayray Degroot Age: 61 Gender: F : 1960 Exam Date: 02/22/2022 14:04 Ordering Phys: Joann Palomo MD Technologist: Justine Alonso [place] [facility] [place]: scleroderma BP: 118 / 80 HR: 95 Rhythm: Sinus Technical Quality: Adequate MEASUREMENTS (Male / Female) Normal Values 2D ECHO LV Diastolic Diameter PLAX 3.7 cm 4.2 - 5.9 / 3.9 - 5.3 cm LV Systolic Diameter PLAX 2.8 cm IVS Diastolic Thickness 0.8 cm 0.6 - 1.0 / 0.6 - 0.9 cm IVS Systolic Thickness 0.8 cm LVPW Diastolic Thickness 0.8 cm 0.6 - 1.0 / 0.6 - 0.9 cm LVPW Systolic Thickness 1.1 cm LVOT Diameter 2.1 cm LV Ejection Fraction 2D Teich 49.1 % LV Ejection Fraction MOD 2C 49.9 % LV Ejection Fraction 2C AL 52.8 % LA Diameter 2.1 cm LA Width 2.4 cm LA Height 3.4 cm RA Width 2.8 cm RA Height 3.1 cm Aorta at Sinotubular Diameter 2.6 cm IVC Diameter 1.9 cm M-MODE MV E Point Septal Separation 0.4 cm DOPPLER AV Peak Velocity 152.0 cm/s LVOT Peak Velocity 109.0 cm/s AV Area Cont Eq vti 2.4 cm squared AV Area Cont Eq pk 2.5 cm squared MV Peak Velocity 96.0 cm/s MV Area PHT 4.2 cm squared Mitral E to A Ratio 0.8 MV E' Velocity 43.0 cm/s Mitral E to MV E' Ratio 8.6 Mitral E to LV E' Lateral Ratio 7.4 Mitral E to LV E' Septal Ratio 10.4 TR Peak Velocity 121.7 cm/s TR Peak Gradient 5.9 mmHg Right Atrial Pressure 3.0 mmHg Pulmonary Artery Systolic Pressu 8.9 mmHg PV Peak Velocity 80.0 cm/s RV Acceleration Time 0.2 s RV Ejection Time 0.3 s RV AcT/ET 0.6 FINDINGS Left Ventricle Normal left ventricular size. LV systolic function is normal with EF of 55-60%. No regional wall motion abnormalities. Normal diastolic filling pattern. Right Ventricle The right ventricle is normal in size and function. Right Atrium The right atrium is normal in size. RA pressure is normal Left Atrium The left atrium is normal in size. Mitral Valve Structurally normal mitral valve without significant stenosis or prolapse. There is no mitral regurgitation. Aortic Valve Structurally normal aortic valve without significant sclerosis or stenosis. There is no aortic regurgitation. Tricuspid Valve Structurally normal tricuspid valve. Trace tricuspid regurgitation. Insufficient TR jet to calculate RVSP Pulmonic Valve Grossly normal Pericardium Normal pericardium without effusion. Aorta Normal ascending aorta dimension. IVC CONCLUSIONS Normal LV systolic function with EF of 55 to 60%. Diastolic function is normal. No significant valvular heart disease is seen. Trace tricuspid regurgitation. Compared to prior echocardiogram from 10/19/2021, no significant changes are seen. Bowen Garcia MD (Electronically Signed) Final Date: 22 February 2022 16:29 S
== END 2022-02-22 13:37 | disposition home or self-care (01) ==
PROVIDERS: PCP Family Medicine; Visit Provider Internal Medicine Critical Care Medicine
DX: M34.0 Progressive systemic sclerosis (principal); I07.1 Rheumatic tricuspid insufficiency
CPT/HCPCS: 93306

== ENCOUNTER → 2022-03-18 14:52 | Outpatient (BNVA) | payer MEDICARE, BC, SELFPAY | PROVIDERS: PCP Family Medicine; Visit Provider Internal Medicine | DX: M34.0 Progressive systemic sclerosis (principal); M79.606 Pain in leg, unspecified; J84.89 Other specified interstitial pulmonary diseases; R51.9 Headache, unspecified; R53.83 Other fatigue; F17.210 Nicotine dependence, cigarettes, uncomplicated | CPT/HCPCS: 99214 ==

== ENCOUNTER → 2022-04-01 09:24 | Outpatient (BNVA) | payer MEDICARE, BC, SELFPAY | PROVIDERS: PCP Family Medicine; Visit Provider Specialist | DX: G43.711 Chronic migraine without aura, intractable, with status migrainosus (principal); M34.9 Systemic sclerosis, unspecified; F41.9 Anxiety disorder, unspecified; F17.210 Nicotine dependence, cigarettes, uncomplicated | CPT/HCPCS: 99214 ==

== ENCOUNTER 2022-04-09 17:03 | Outpatient (CLI) | payer MEDICARE, BC, SELFPAY ==
--- NOTE | 2022-04-09 17:30 | CTR_ITS ---
PROCEDURE INFORMATION: Exam: CT Abdomen And Pelvis Without Contrast Exam date and time: 04/09/2022 5:19 PM Age: 61 years old Clinical indication: Abdominal pain; Right; Prior surgery; Surgery date: 6+ months; Surgery type: Hyst, appy, azam hips; Patient HX: RT flank pain since Friday, history of stones; Additional info: Right flank pain, hematuria, concern for renal stone, renal stone protocol TECHNIQUE: Imaging protocol: Computed tomography of the abdomen and pelvis without contrast. Radiation optimization: All CT scans at this facility use at least one of these dose optimization techniques: automated exposure control; mA and/or kV adjustment per patient size (includes targeted exams where dose is matched to clinical indication); or iterative reconstruction. COMPARISON: MR pelvis wo/w con [id number] 02/11/2018 8:36 AM RADIATION DOSE METRICS: Total DLP (mGy-cm): 773.22 FINDINGS: Lungs: 3 mm calcified granuloma right lung base. No infiltrates at the lung bases. Diaphragm: There is a small hiatal hernia present. Liver: The liver is unremarkable in appearance. Gallbladder and bile ducts: No calcified gallstones in the gallbladder. No gallbladder wall thickening. No pericholecystic fluid. No biliary dilatation. Pancreas: The pancreas is normal in appearance. No pancreatic duct dilatation. Spleen: The spleen is normal in size and appearance. Adrenal glands: The adrenal glands appear within normal limits. Kidneys and ureters: Bilateral nephrolithiasis, right worse than left. Renal calculi measuring up to 10 mm in diameter are noted. The largest calculus is seen in the lower pole of the right kidney. No hydronephrosis in the kidneys. The bilateral ureters are unremarkable. No obstructive uropathy. Stomach and bowel: No acute gastric abnormality demonstrated. The small bowel is unremarkable as demonstrated. Diverticulosis of the colon. No evidence of acute diverticulitis. Appendix: No evidence of appendicitis. The appendix is not visualized. Intraperitoneal space: No pneumoperitoneum. No significant fluid collection. Vasculature: Mild atherosclerosis of the aorta. No abdominal aortic aneurysm. Lymph nodes: No pathologically enlarged lymph nodes are demonstrated. Urinary bladder: Unremarkable as visualized. Reproductive: The uterus is not visualized, consistent with hysterectomy. Bones/joints: Degenerative spine changes are noted. Soft tissues: The soft tissues appear unremarkable. CT/CT kidney stone [id number] IMPRESSION: 1. Bilateral nephrolithiasis, right worse than left. Renal calculi measuring up to 10 mm in diameter are noted. The largest calculus is seen in the lower pole of the right kidney. No hydronephrosis in the kidneys. The bilateral ureters are unremarkable. No obstructive uropathy. 2. Diverticulosis of the colon. No evidence of acute diverticulitis. 3. No acute abnormality demonstrated in the abdomen and pelvis.
== END 2022-04-09 17:04 | disposition home or self-care (01) ==
LOC: RAD 17:04
PROVIDERS: PCP Family Medicine; Visit Provider Family Medicine
DX: N20.0 Calculus of kidney (principal); K57.30 Diverticulosis of large intestine without perforation or abscess without bleeding
CPT/HCPCS: 74176; 81000; 87086

== ENCOUNTER 2022-04-15 13:12 | Outpatient (CLI) | payer MEDICARE, BC, SELFPAY ==
--- NOTE | 2022-04-15 13:30 | CT_ITS ---
WS: [email or web address] CT PARANASAL SINUSES HISTORY: R53.83 - Other fatigue TECHNIQUE: Contiguous 2.5 mm axial images obtained through the sinuses. Images are reconstructed in s agittal and coronal planes. All CT scans at [facility] use at least one of these dose optimiz ation techniques: automated exposure control; mA and/or kV adjustment per patient size (includes targ eted exams where dose is matched to clinical indication); or iterative reconstruction. DLP: 302.08 mGy.cm COMPARISON: None available. Frontal sinuses: Very small hypoplastic frontal sinuses. No mucosal thickening. Sphenoid sinus: Normal. Ethmoid sinuses: Normal. Maxillary sinus: Normal. Ostiomeatal unit: Normal. Conchal bullosa RIGHT middle turbinate. Mild spur measuring 4 mm to the LEFT of midline. CT/CT sinus wo con* [id number] IMPRESSION: 1. No acute sinus disease or air-fluid levels. 2. Very small nasal septal spur to the LEFT.
== END 2022-04-15 13:13 | disposition home or self-care (01) ==
LOC: RAD 13:15
PROVIDERS: PCP Family Medicine; Visit Provider Internal Medicine
DX: R53.83 Other fatigue (principal); N30.20 Other chronic cystitis without hematuria; N20.0 Calculus of kidney; M81.0 Age-related osteoporosis without current pathological fracture; M25.559 Pain in unspecified hip
CPT/HCPCS: 36415; 70486; 72040; 72100; 74018; 80053; 81001; 82306; 82533; 82550; 82607; 82728; 83540; 83735; 84100; 85025; 85651; 86140; 87077; 87086; 87186; 99213; 99214

== ENCOUNTER 2022-04-15 13:17 | Outpatient (CLI) | payer MEDICARE, BC, SELFPAY ==
--- NOTE | 2022-04-15 13:36 | XR_ITS ---
WS: [email or web address] KUB, AP view, 04/15/2022 Clinical Data: STONES Comparison: KUB, 04/21/2017, CT abdomen pelvis, 04/09/2022. Findings: No abnormal intraabdominal masses are seen. There is no dilatated small bowel or evidence of obstruct ion. There is a calcification in the inferior pole right kidney with greatest dimension of 2.1 cm. The lef t renal calcification seen on the CT abdomen and pelvis are not imaged. Bilateral hip nails are prese nt. There are surgical cl from a bilateral inguinal hernia repair. XR/XR KUB [id number] Impression: Inferior pole 2.1 cm right renal calculus
== END 2022-04-15 13:18 | disposition home or self-care (01) ==
LOC: RAD 13:18
PROVIDERS: PCP Family Medicine; Visit Provider Urology
DX: N20.0 Calculus of kidney (principal)
CPT/HCPCS: 74018

== ENCOUNTER → 2022-05-09 10:34 | Outpatient (BNVA) | payer MEDICARE, BC, SELFPAY | PROVIDERS: PCP Family Medicine; Visit Provider Urology | DX: N30.20 Other chronic cystitis without hematuria (principal); R10.9 Unspecified abdominal pain; N20.0 Calculus of kidney | CPT/HCPCS: 81003; 87086; 99213 ==

== ENCOUNTER → 2022-06-03 09:23 | Outpatient (BNVA) | payer MEDICARE, BC, SELFPAY | PROVIDERS: PCP Family Medicine; Visit Provider Nurse Practitioner Family | DX: R00.2 Palpitations (principal) | CPT/HCPCS: 99213 ==

== ENCOUNTER → 2022-06-04 14:53 | Outpatient (BNVA) | payer MEDICARE, BC, SELFPAY | PROVIDERS: PCP Family Medicine; Visit Provider Internal Medicine | DX: R31.9 Hematuria, unspecified (principal); M34.0 Progressive systemic sclerosis; J84.89 Other specified interstitial pulmonary diseases; R53.83 Other fatigue; M35.9 Systemic involvement of connective tissue, unspecified | CPT/HCPCS: 36415; 80053; 81001; 85025; 85651; 86140; 99214 ==

== ENCOUNTER 2022-06-21 09:33 | Outpatient (CLI) | payer MEDICARE, BC, SELFPAY ==
--- NOTE | 2022-06-21 09:42 | XR_ITS ---
WS: [email or web address] KUB, AP view, 06/21/2022 Clinical Data: stones Comparison: KUB, 04/15/2022 Findings: No abnormal intraabdominal masses are seen. There is no dilatated small bowel or evidence of obstruct ion. The 2.1 cm calcification in the inferior pole of the right kidney remains the same. No left renal cheryle cifications are noted. There are bilateral hip nails and bilateral inguinal hernia repair. XR/XR KUB [id number] Impression: No change in inferior pole right renal calculus.
== END 2022-06-21 09:34 | disposition home or self-care (01) ==
LOC: RAD 09:37
PROVIDERS: PCP Family Medicine; Visit Provider Urology
DX: N20.0 Calculus of kidney (principal); N39.0 Urinary tract infection, site not specified; R10.9 Unspecified abdominal pain
CPT/HCPCS: 74018; 81003; 99213

== ENCOUNTER 2022-07-10 15:59 | Outpatient (CLI) | payer MEDICARE, BC, SELFPAY ==
--- NOTE | 2022-07-10 16:08 | XRR_ITS ---
PROCEDURE INFORMATION: Exam: XR Abdomen Exam date and time: 07/10/2022 4:09 PM Age: 61 years old Clinical indication: Pain; Other: Flank; Prior surgery; Surgery type: Hsyto, uterus; Additional info: Nephrolithiasis TECHNIQUE: Imaging protocol: Radiologic exam of the abdomen. Views: Frontal supine view of the abdomen. 1 View. COMPARISON: CR XR KUB [id number] 06/21/2022 9:47 AM FINDINGS: Gastrointestinal tract: Normal. No bowel dilation. Intraperitoneal space: Pelvis: Multiple metallic densities seen in the lower portion of the pelvis. Organs: Kidneys: There is calcified caliceal stones in the lower pole collecting system of the right kidney. Stones measures 7 mm x 11 mm, and 8 mm respectively Bones/joints: There are bilateral metallic intramedullary rods and dynamic screw in the hips. Other findings: Comparison to prior examination similar findings seen XR/XR KUB [id number] IMPRESSION: 1. No acute findings. 2. Calcified stones lower pole right kidney 3. Post surgical hardware is in both hips. 4. Metallic densities in the lower pelvis
== END 2022-07-10 16:00 | disposition home or self-care (01) ==
LOC: RAD 16:01
PROVIDERS: PCP Family Medicine; Visit Provider Family Medicine
DX: N20.0 Calculus of kidney (principal); R10.9 Unspecified abdominal pain
CPT/HCPCS: 74018; 81003; 87086

== ENCOUNTER 2022-07-15 10:31 | Outpatient (CLI) | payer MEDICARE, BC, SELFPAY ==
[2022-07-15 11:57] LABS: Albumin Level 4.5 g/dL (3.5-5.2); Calcium 9.1 mg/dL (8.5-10.5); Glomerular Filtration Rate 72.7 mL/min (90-130)
[2022-07-15 12:12] VITALS: BP 123/76; PULSE 91; RESP 18; TEMP 37.2; O2SAT 97
[2022-07-15] MEDS: denosumab 60 mg SDV SUBCUT (12:22)
[2022-07-15 12:29] VITALS: BP 100/67; PULSE 92; RESP 18; TEMP 36.8; O2SAT 98
[2022-07-15 19:12] LABS: 25 Hydroxy Vitamin D 78 ng/mL (30-100)
== END 2022-07-15 10:32 | disposition home or self-care (01) ==
LOC: ONCMED 10:32
PROVIDERS: PCP Family Medicine; Visit Provider Internal Medicine
DX: M81.0 Age-related osteoporosis without current pathological fracture (principal)
CPT/HCPCS: 36415; 82040; 82306; 82310; 82565; 96372; J0897

== ENCOUNTER → 2022-07-22 09:23 | Outpatient (BNVA) | payer MEDICARE, BC, SELFPAY | PROVIDERS: PCP Family Medicine; Visit Provider Internal Medicine Pulmonary Disease | DX: J43.9 Emphysema, unspecified (principal); F17.210 Nicotine dependence, cigarettes, uncomplicated; R00.0 Tachycardia, unspecified; M34.9 Systemic sclerosis, unspecified | CPT/HCPCS: 99214 ==

== ENCOUNTER → 2022-08-13 14:39 | Outpatient (BNVA) | payer MEDICARE, BC, SELFPAY | PROVIDERS: PCP Family Medicine; Visit Provider Internal Medicine | DX: M34.0 Progressive systemic sclerosis (principal); J84.89 Other specified interstitial pulmonary diseases; R21 Rash and other nonspecific skin eruption; M54.50 Low back pain, unspecified; F17.210 Nicotine dependence, cigarettes, uncomplicated; R53.83 Other fatigue | CPT/HCPCS: 99213 ==

== ENCOUNTER → 2022-08-26 09:27 | Outpatient (BNVA) | payer MEDICARE, BC, SELFPAY | PROVIDERS: PCP Family Medicine; Visit Provider Anesthesiology Pain Medicine | DX: M54.50 Low back pain, unspecified (principal) | CPT/HCPCS: 99205 ==

== ENCOUNTER → 2022-09-04 12:43 | Outpatient (BNVA) | payer MEDICARE, BC, SELFPAY | PROVIDERS: PCP Family Medicine; Visit Provider Internal Medicine | DX: R00.2 Palpitations (principal); R06.02 Shortness of breath; Z51.81 Encounter for therapeutic drug level monitoring; M34.9 Systemic sclerosis, unspecified; F17.218 Nicotine dependence, cigarettes, with other nicotine-induced disorders; K21.9 Gastro-esophageal reflux disease without esophagitis; J84.89 Other specified interstitial pulmonary diseases; Z79.899 Other long term (current) drug therapy | CPT/HCPCS: 99214 ==

== ENCOUNTER 2022-09-19 13:57 | Outpatient (CLI) | payer MEDICARE, BC, SELFPAY ==
--- NOTE | 2022-09-19 14:30 | MR_ITS ---
WS: [email or web address] MRI LUMBAR SPINE NONCONTRAST TECHNIQUE: Sagittal T1, T2 and STIR imaging. Axial T1 and T2 imaging. CLINICAL INFORMATION: M48.062 - Spinal stenosis, lumbar region with neurogenic ... COMPARISON: None. FINDINGS: Mild lumbar curve. Mild spondylitic changes. Slight retrolisthesis L2 on L3. Disc space narrowing wor se at L2-L3 and L5-S1. No acute compression fractures. No high-grade central canal stenosis. L1-L2: Mild facet arthropathy. Spinal canal and foramen are patent. L2-L3: Slight retrolisthesis L2 on L3. Narrowing of the LEFT subarticular recess. Mild facet arthropa thy. Spinal canal and foramen are patent. L3-L4: Mild disc bulging with narrowing of the subarticular recess bilaterally. Mild LEFT and no sign ificant RIGHT foraminal narrowing. Mild facet arthropathy. L4-L5: Mild annular bulging with slight effacement of ventral thecal sac. Slight impingement traversi ng L5 nerve roots bilaterally. Moderate facet arthropathy. Mild RIGHT foraminal narrowing with slight impingement on the exiting RIGHT L4 nerve root. LEFT foramen is patent. L5-S1: Mild disc bulging with shallow bulging. Slight impingement traversing LEFT greater than RIGHT S1 nerve roots. Mild facet arthropathy. Mild LEFT greater than RIGHT foraminal narrowing. Adrenal glands are normal. Small bilateral renal cysts. MR/MR lumbar spine wo con* [id number] IMPRESSION: 1. Mild lumbar curve. No acute compression. No high-grade central canal stenos is. 2. Mild disc bulging L5-S1 with shallow central and LEFT pericentral protrusio n. Impingement traversing LEFT S1 nerve root. Correlation LEFT S1 nerve root sy mptoms. 3. Slight retrolisthesis L2 on L3 with impingement on the LEFT subarticular re cess and traversing LEFT L3 nerve root. 4. RIGHT foraminal protrusion L4-L5 slightly contacts the exiting RIGHT L4 ner ve root. 5. Mild bilateral L5-S1 foraminal narrowing with contact of the exiting L5 ner ve roots bilaterally. 6. Moderate facet arthropathy L3-L4 and L4-L5.
== END 2022-09-19 13:58 | disposition home or self-care (01) ==
LOC: RAD 13:57
PROVIDERS: PCP Family Medicine; Visit Provider Anesthesiology Pain Medicine
DX: M48.062 Spinal stenosis, lumbar region with neurogenic claudication (principal); M48.07 Spinal stenosis, lumbosacral region; M51.26 Other intervertebral disc displacement, lumbar region
CPT/HCPCS: 72148

== ENCOUNTER → 2022-10-14 14:55 | Outpatient (BNVA) | payer MEDICARE, BC, SELFPAY | PROVIDERS: PCP Family Medicine; Visit Provider Internal Medicine | DX: M34.0 Progressive systemic sclerosis (principal); M54.50 Low back pain, unspecified; J84.89 Other specified interstitial pulmonary diseases; R21 Rash and other nonspecific skin eruption; R10.9 Unspecified abdominal pain | CPT/HCPCS: 36415; 80053; 81001; 85025; 85652; 86140; 87086; 99214 ==

== ENCOUNTER → 2022-10-15 10:44 | Outpatient (BNVA) | payer MEDICARE, BC, SELFPAY | PROVIDERS: PCP Family Medicine; Visit Provider Anesthesiology Pain Medicine | DX: M47.816 Spondylosis without myelopathy or radiculopathy, lumbar region (principal); M25.551 Pain in right hip | CPT/HCPCS: 99214 ==

== ENCOUNTER → 2022-10-30 14:38 | Outpatient (BNVA) | payer MEDICARE, BC, SELFPAY | PROVIDERS: PCP Family Medicine; Visit Provider Anesthesiology Pain Medicine | DX: M47.816 Spondylosis without myelopathy or radiculopathy, lumbar region (principal) | CPT/HCPCS: 64493; 64494; 64495; J3490 ==

== ENCOUNTER → 2022-11-13 10:54 | Outpatient (BNVA) | payer MEDICARE, BC, SELFPAY | PROVIDERS: PCP Family Medicine; Visit Provider Anesthesiology Pain Medicine | DX: M47.816 Spondylosis without myelopathy or radiculopathy, lumbar region (principal); M25.551 Pain in right hip | CPT/HCPCS: 99212; 99213 ==

== ENCOUNTER 2022-12-24 08:46 | Outpatient (CLI) | payer MEDICARE, BC, SELFPAY ==
--- NOTE | 2022-12-24 08:54 | XR_ITS ---
WS: [email or web address] EXAMINATION: XR KUB [id number] REASON FOR EXAM: stones COMPARISON: 07/10/2022 ORDER DATE: 12/24/2022 9:17 AM FINDINGS: Gastrointestinal tract: Normal. No bowel dilation. Intraperitoneal space: Pelvis: Multiple metallic densities seen in the lower portion of the pelvis represent mesh markers. Organs: Kidneys: There is calcified caliceal stones in the lower pole collecting system of the right kidney. Stones measures 7 mm x 11 mm, and 8 mm respectively Bones/joints: There are bilateral metallic intramedullary rods and dynamic screw in the hips. Other findings: Comparison to prior examination similar findings seen XR/XR KUB [id number] IMPRESSION: 1. No acute findings. 2. Calcified stones lower pole right kidney 3. No change from previous study
== END 2022-12-24 08:47 | disposition home or self-care (01) ==
PROVIDERS: PCP Family Medicine; Visit Provider Urology
DX: N20.0 Calculus of kidney (principal); N39.0 Urinary tract infection, site not specified; R10.9 Unspecified abdominal pain
CPT/HCPCS: 74018; 81003; 99213

== ENCOUNTER 2023-01-15 08:46 | Oncology outpatient (recurring) (ONCR) | payer MEDICARE, BC, SELFPAY ==
[2023-01-15] MEDS: denosumab 60 mg SDV SUBCUT (09:16)
[2023-01-15 09:25] VITALS: BP 111/60; PULSE 98; RESP 16; TEMP 36.4; O2SAT 96
== END 2023-02-03 23:59 | disposition home or self-care (01) ==
LOC: ONCMED 08:48
PROVIDERS: Internal Medicine; PCP Family Medicine; Visit Provider Internal Medicine Medical Oncology
DX: M81.0 Age-related osteoporosis without current pathological fracture (principal)
CPT/HCPCS: 36415; 82310; 96372; J0897

== ENCOUNTER → 2023-01-20 10:55 | Outpatient (BNVA) | payer MEDICARE, BC, SELFPAY | PROVIDERS: PCP Family Medicine; Visit Provider Obstetrics & Gynecology | DX: R10.2 Pelvic and perineal pain (principal); Z90.710 Acquired absence of both cervix and uterus | CPT/HCPCS: 76857 ==

== ENCOUNTER 2023-01-31 14:36 | Outpatient (CLI) | payer MEDICARE, BC, SELFPAY ==
--- NOTE | 2023-01-31 14:45 | MM_ITS ---
WS: [email or web address] BILATERAL 3D TOMOSYNTHESIS DIGITAL SCREENING MAMMOGRAPHY WITH CAD CLINICAL INFORMATION: Z12.39 - Encounter for other screening for malignant neop... HISTORY: Screening mammogram. No current complaints. COMPARISON: 2020 TECHNIQUE: Bilateral CC and MLO views. FINDINGS: Scattered fibroglandular densities bilaterally. No suspicious focal mass, asymmetry, calcifications, or architectural distortion. No evidence of malignancy. Incidental punctate calcifications. MM/[place] [id number] IMPRESSION: BI-RADS: 2-Benign FOLLOW UP: 1 Year Follow-up Recommend return to annual screening mammography.
== END 2023-01-31 14:37 | disposition home or self-care (01) ==
LOC: RAD 14:42 → MOBLMAM 14:44
PROVIDERS: PCP Family Medicine; Visit Provider Obstetrics & Gynecology
DX: Z12.31 Encounter for screening mammogram for malignant neoplasm of breast (principal)
CPT/HCPCS: 77063; 77067

== ENCOUNTER → 2023-02-04 10:46 | Outpatient (BNVA) | payer MEDICARE, BC, SELFPAY | PROVIDERS: PCP Family Medicine; Visit Provider Nurse Practitioner Family | DX: L81.4 Other melanin hyperpigmentation (principal) | CPT/HCPCS: 11102; 99214 ==

== ENCOUNTER → 2023-02-11 14:44 | Outpatient (BNVA) | payer MEDICARE, BC, SELFPAY | PROVIDERS: PCP Family Medicine; Visit Provider Internal Medicine | DX: J84.89 Other specified interstitial pulmonary diseases (principal); M34.0 Progressive systemic sclerosis; R21 Rash and other nonspecific skin eruption; M54.50 Low back pain, unspecified; R10.9 Unspecified abdominal pain; Z87.442 Personal history of urinary calculi | CPT/HCPCS: 36415; 80053; 81001; 85025; 85651; 86140; 87086; 99214 ==

== ENCOUNTER → 2023-03-07 08:29 | Outpatient (BNVA) | payer MEDICARE, BC, SELFPAY | PROVIDERS: PCP Family Medicine; Visit Provider Nurse Practitioner Family | DX: M34.83 Systemic sclerosis with polyneuropathy (principal); B35.4 Tinea corporis; Z85.828 Personal history of other malignant neoplasm of skin; Z80.8 Family history of malignant neoplasm of other organs or systems | CPT/HCPCS: 99213 ==

== ENCOUNTER → 2023-03-20 13:18 | Outpatient (BNVA) | payer MEDICARE, BC, SELFPAY | PROVIDERS: PCP Family Medicine; Visit Provider Internal Medicine Pulmonary Disease | DX: J43.9 Emphysema, unspecified (principal); F17.210 Nicotine dependence, cigarettes, uncomplicated; R00.0 Tachycardia, unspecified; Z71.6 Tobacco abuse counseling | CPT/HCPCS: 99214 ==

== ENCOUNTER → 2023-04-01 10:39 | Outpatient (BNVA) | payer MEDICARE, BC, SELFPAY | PROVIDERS: PCP Family Medicine; Visit Provider Specialist | DX: G43.711 Chronic migraine without aura, intractable, with status migrainosus (principal); F41.9 Anxiety disorder, unspecified; F32.A Depression, unspecified; Z79.899 Other long term (current) drug therapy | CPT/HCPCS: 81001; 87077; 87086; 87186; 99212; 99213 ==

== ENCOUNTER 2023-04-02 08:23 | Outpatient (CLI) | payer MEDICARE, BC, SELFPAY ==
--- NOTE | 2023-04-02 08:45 | CT_ITS ---
WS: [email or web address] LDCT LUNG CANCER SCREENING HISTORY: Cancer Screen TECHNIQUE: Axial imaging performed from the apices to 1 cm below the costophrenic angles. Coronal and sagittal reformats are submitted with axial MIP series. All CT scans at [facility] use at least one of these dose optimization techniques: automated exposure control; mA and/or kV adjustment per patient size (includes targeted exams where dose is matched to clinical indication); or iterativ e reconstruction. DLP: 42.40 mGy.cm DIvol: Mean CTDIvol: 0.70 (mGy) COMPARISON: 02/19/2022, 12/24/2016 Diagnostic quality: Satisfactory Lungs: Mild pulmonary hyperexpansion. There are a few tiny micronodules and calcified nodules through out both lungs which are stable. No new or increasing nodules. No endobronchial lesions. Heart: Normal size heart with no pericardial effusion.. Other findings: Calcified mediastinal and hilar lymph nodes. Prior granulomatous disease. IMPRESSION: CT/CT lung screening [id number] LUNG-RADS: 2-Benign Appearance or Behavior FOLLOW UP: 12 Month: Continue annual screening with LDCT OTHER FINDINGS (S MODIFIER): None.
== END 2023-04-02 08:24 | disposition home or self-care (01) ==
PROVIDERS: PCP Family Medicine; Visit Provider Internal Medicine Pulmonary Disease
DX: Z12.2 Encounter for screening for malignant neoplasm of respiratory organs (principal); F17.218 Nicotine dependence, cigarettes, with other nicotine-induced disorders
CPT/HCPCS: 71271

== ENCOUNTER → 2023-04-03 08:37 | Outpatient (BNVA) | payer MEDICARE, BC, SELFPAY | PROVIDERS: PCP Family Medicine; Visit Provider Internal Medicine | DX: N39.0 Urinary tract infection, site not specified (principal); M34.0 Progressive systemic sclerosis; J84.89 Other specified interstitial pulmonary diseases; R21 Rash and other nonspecific skin eruption; M54.50 Low back pain, unspecified; N20.0 Calculus of kidney | CPT/HCPCS: 99214 ==

== ENCOUNTER 2023-04-11 06:38 | Outpatient (CLI) | payer MEDICARE, BC, SELFPAY ==
--- NOTE | 2023-04-11 07:15 | US_ITS ---
WS: [email or web address] RENAL ULTRASOUND HISTORY: N39.0 - Urinary tract infection, site not specified COMPARISON: None available. TECHNIQUE: 2-D and color Doppler imaging of the kidney submitted. Right kidney: 8.7 cm x 4.6 cm x 4.6 cm. Cortex: 1.0 cm Low normal size kidney. No hydronephrosis and no mass. Left kidney: 9.2 cm x 3.9 cm x 3.7 cm. Cortex: 1.0 cm Normal echogenicity with no hydronephrosis or mass. Aorta: Normal. Urinary Bladder: Nondistended. Mild bladder wall thickening is due to under distention. IMPRESSION: 1. Low normal size RIGHT kidney. 2. No hydronephrosis and no solid mass.
== END 2023-04-11 06:39 | disposition home or self-care (01) ==
LOC: RAD 06:39
PROVIDERS: PCP Family Medicine; Visit Provider Internal Medicine
DX: N39.0 Urinary tract infection, site not specified (principal)
CPT/HCPCS: 76770

== ENCOUNTER → 2023-05-07 12:46 | Outpatient (BNVA) | payer MEDICARE, BC, SELFPAY | PROVIDERS: PCP Family Medicine; Visit Provider Internal Medicine | DX: R00.2 Palpitations (principal); E78.5 Hyperlipidemia, unspecified; R06.02 Shortness of breath; M34.9 Systemic sclerosis, unspecified; F17.218 Nicotine dependence, cigarettes, with other nicotine-induced disorders; K21.9 Gastro-esophageal reflux disease without esophagitis; J84.89 Other specified interstitial pulmonary diseases | CPT/HCPCS: 99214 ==

== ENCOUNTER → 2023-07-17 08:53 | Outpatient (BNVA) | payer MEDICARE, BC, SELFPAY | PROVIDERS: PCP Family Medicine; Visit Provider Internal Medicine | DX: R79.89 Other specified abnormal findings of blood chemistry (principal); M34.0 Progressive systemic sclerosis; E78.5 Hyperlipidemia, unspecified; J84.89 Other specified interstitial pulmonary diseases; R21 Rash and other nonspecific skin eruption; M54.50 Low back pain, unspecified; N20.0 Calculus of kidney; R53.83 Other fatigue; Z79.620 Long term (current) use of immunosuppressive biologic | CPT/HCPCS: 36415; 80053; 80061; 81001; 82306; 82550; 82607; 84439; 84443; 85025; 85651; 86140; 99214 ==

== ENCOUNTER → 2023-08-06 14:02 | Outpatient (BNVA) | payer MEDICARE, BC, SELFPAY | PROVIDERS: PCP Family Medicine; Visit Provider Dermatology | DX: L57.0 Actinic keratosis (principal); L82.1 Other seborrheic keratosis; Z85.828 Personal history of other malignant neoplasm of skin; Z80.8 Family history of malignant neoplasm of other organs or systems; M34.83 Systemic sclerosis with polyneuropathy | CPT/HCPCS: 17000; 99213 ==

== ENCOUNTER → 2023-12-18 10:55 | Outpatient (BNVA) | payer MEDICARE, BC, SELFPAY | PROVIDERS: PCP Family Medicine; Visit Provider Internal Medicine Pulmonary Disease | DX: J43.9 Emphysema, unspecified (principal); F17.210 Nicotine dependence, cigarettes, uncomplicated; R00.0 Tachycardia, unspecified; M34.9 Systemic sclerosis, unspecified | CPT/HCPCS: 99214 ==

== ENCOUNTER → 2024-02-17 13:43 | Outpatient (BNVA) | payer MEDICARE, BC, SELFPAY | PROVIDERS: PCP Family Medicine; Visit Provider Internal Medicine Rheumatology | DX: M34.9 Systemic sclerosis, unspecified (principal); R76.8 Other specified abnormal immunological findings in serum; Z79.899 Other long term (current) drug therapy; Z71.85 Encounter for immunization safety counseling | CPT/HCPCS: 36415; 80076; 82565; 85025; 85651; 86140; 99214 ==

== ENCOUNTER → 2024-04-02 09:42 | Outpatient (BNVA) | payer MEDICARE, BC, SELFPAY | PROVIDERS: PCP Family Medicine; Visit Provider Nurse Practitioner Family | DX: L57.0 Actinic keratosis (principal); L82.1 Other seborrheic keratosis; L81.5 Leukoderma, not elsewhere classified; M34.83 Systemic sclerosis with polyneuropathy; D22.5 Melanocytic nevi of trunk; L81.4 Other melanin hyperpigmentation; Z85.828 Personal history of other malignant neoplasm of skin | CPT/HCPCS: 17000; 99213 ==

== ENCOUNTER → 2024-04-09 09:42 | Outpatient (BNVA) | payer MEDICARE, BC, SELFPAY | PROVIDERS: PCP Family Medicine; Visit Provider Internal Medicine | DX: R00.2 Palpitations (principal); R06.02 Shortness of breath; M34.9 Systemic sclerosis, unspecified; F17.218 Nicotine dependence, cigarettes, with other nicotine-induced disorders; K21.9 Gastro-esophageal reflux disease without esophagitis; J84.89 Other specified interstitial pulmonary diseases | CPT/HCPCS: 99214 ==

== ENCOUNTER → 2024-05-21 13:10 | Outpatient (BNVA) | payer MEDICARE, BC, SELFPAY | PROVIDERS: PCP Family Medicine; Visit Provider Family Medicine | DX: R30.0 Dysuria (principal); N39.0 Urinary tract infection, site not specified; M54.50 Low back pain, unspecified | CPT/HCPCS: 81000; 87077; 87086; 87184 ==

== ENCOUNTER → 2024-10-04 09:18 | Outpatient (BNVA) | payer MEDICARE, BC, SELFPAY | PROVIDERS: PCP Family Medicine; Visit Provider Internal Medicine Rheumatology | DX: M34.9 Systemic sclerosis, unspecified (principal); Z79.899 Other long term (current) drug therapy; Z71.85 Encounter for immunization safety counseling; R76.8 Other specified abnormal immunological findings in serum | CPT/HCPCS: 36415; 80076; 82565; 85025; 85651; 86140; 99214 ==

== ENCOUNTER → 2025-01-11 13:24 | Outpatient (BNVA) | payer MEDICARE, BC, SELFPAY | PROVIDERS: PCP Family Medicine; Visit Provider Nurse Practitioner Family | DX: R00.0 Tachycardia, unspecified (principal); R00.2 Palpitations; R06.02 Shortness of breath; K21.9 Gastro-esophageal reflux disease without esophagitis; J84.89 Other specified interstitial pulmonary diseases; M35.9 Systemic involvement of connective tissue, unspecified; F17.218 Nicotine dependence, cigarettes, with other nicotine-induced disorders | CPT/HCPCS: 99213 ==

== ENCOUNTER 2025-02-08 10:46 | Outpatient (CLI) | payer MEDICARE, BC, SELFPAY ==
--- NOTE | 2025-02-08 11:00 | MM_ITS ---
WS: [email or web address] SCREENING DIGITAL BREAST TOMOSYNTHESIS MAMMOGRAM WITH CAD HISTORY: Z12.31 - Encounter for screening mammogram for malignant ... COMPARISON: 01/31/2023, 06/13/2020 Bilateral CC and MLO with tomosynthesis and synthetic mammography submitted. Computer aided detection analyzed. Breast composition: There are scattered areas of fibroglandular density. Focal asymmetry measuring 5 mm of increased density in the mid RIGHT breast just lateral to the nipple line. Not definitely seen on the lateral projection. Otherwise no suspicious areas of calcification or distortion. MM/MM scr BI tomosynthesis [id number] IMPRESSION: BI-RADS: 0 - Incomplete: Need additional imaging evaluation. FOLLOW UP: Need Additional Imaging RIGHT breast: Spot compression views (CC and MLO). True ML. Ultrasound to follo w if abnormality persists.
== END 2025-02-08 10:47 | disposition home or self-care (01) ==
LOC: RAD 10:47
PROVIDERS: PCP Family Medicine; Visit Provider Family Medicine
DX: Z12.31 Encounter for screening mammogram for malignant neoplasm of breast (principal); R92.323 Mammographic fibroglandular density, bilateral breasts; N64.89 Other specified disorders of breast
CPT/HCPCS: 77063; 77067

== ENCOUNTER 2025-03-01 10:34 | Outpatient (CLI) | payer MEDICARE, BC, SELFPAY ==
--- NOTE | 2025-03-01 10:43 | MM_ITS ---
WS: [email or web address] ADDITIONAL VIEWS RIGHT MAMMOGRAM WITH DIGITAL BREAST TOMOSYNTHESIS. HISTORY: ABNORMAL MAMMO COMPARISON: 02/08/2025, 01/31/2023 and 05/28/2013 Spot compression views RIGHT breast in CC projections and true ML submitted with digital breast tomosynthesis and SM. Breast composition: There are scattered areas of fibroglandular density. Asymmetry in the anterior RIGHT breast just lateral to the nipple line resolves with additional spot compression views. Consistent with superimposed fibroglandular densities. No additional imaging necessary at this time. MM/MM diag RT tomosynthesis [id number] IMPRESSION: BI-RADS: 2 - Benign. FOLLOW UP: 1 Year Follow-up Return to annual screening mammography.
[2025-03-01 11:44] LABS: Hematocrit 43.8 % (36-47); Hemoglobin 14.70 g/dL (11.27-16.99); Mean Corpuscular HGB Conc 33.6 g/dL (30-55); Mean Corpuscular Hemoglobin 30.9 pg (27-33); Mean Corpuscular Volume 92.2 fl (85-98); Nucleated Red Blood Cells % 0 %; Platelet Count 321 10^3/cmm (157-399); Red Blood Count 4.75 10^6/uL (3.85-5.65); White Blood Count 10.63 10^3/uL (3.29-11.43)
[2025-03-01 12:11] LABS: Alanine Aminotransferase 12 U/L (0-33); Albumin Level 4.5 g/dL (3.5-5.2); Alkaline Phosphatase 100 U/L (35-105); Aspartate Amino Transferase 17 U/L (0-32); Globulin 2.8 g/dL (1.3-4.6); Total Protein 7.3 g/dL (6.6-8.7)
== END 2025-03-01 10:35 | disposition home or self-care (01) ==
LOC: RAD 10:35
PROVIDERS: Absent Provider Internal Medicine Rheumatology; Family Provider Internal Medicine Rheumatology; PCP Family Medicine; Visit Provider Family Medicine
DX: R92.8 Other abnormal and inconclusive findings on diagnostic imaging of breast (principal); M34.9 Systemic sclerosis, unspecified; Z79.899 Other long term (current) drug therapy; R92.323 Mammographic fibroglandular density, bilateral breasts; N64.89 Other specified disorders of breast
CPT/HCPCS: 36415; 77061; 80076; 82565; 85025; 85651; 86140; G0279

== ENCOUNTER → 2025-03-14 09:10 | Outpatient (BNVA) | payer MEDICARE, BC, SELFPAY | PROVIDERS: Family Provider Internal Medicine Rheumatology; PCP Family Medicine; Visit Provider Internal Medicine Rheumatology | DX: M34.9 Systemic sclerosis, unspecified (principal); Z79.899 Other long term (current) drug therapy; Z71.85 Encounter for immunization safety counseling; R76.8 Other specified abnormal immunological findings in serum; Z98.890 Other specified postprocedural states | CPT/HCPCS: 99214 ==

== ENCOUNTER → 2025-03-15 12:37 | Outpatient (BNVA) | payer MEDICARE, BC, SELFPAY | PROVIDERS: Family Provider Internal Medicine Rheumatology; PCP Family Medicine; Referring Provider Family Medicine; Visit Provider Specialist | DX: G43.711 Chronic migraine without aura, intractable, with status migrainosus (principal); M54.81 Occipital neuralgia | CPT/HCPCS: 64405; 99215; J1010; J3490 ==

== ENCOUNTER 2025-04-01 09:24 | Outpatient (CLI) | payer MEDICARE, BC, SELFPAY ==
--- NOTE | 2025-04-01 09:30 | MR_ITS ---
WS: [email or web address] MRI BRAIN WITHOUT CONTRAST HISTORY: G43.711 - Chronic migraine without aura, intractable, wit... COMPARISON: 06/19/2016 TECHNIQUE: Diffusion imaging, multiplanar T1, T2 and FLAIR imaging obtained. No diffusion abnormalities. No acute infarct. Numerous scattered T2 and FLAIR signal hyperintensities in the supratentorial brain. Hyperintensities have increased in size and number since 06/19/2016. No hemorrhage. Moderate bilateral increased signal within the becca, LEFT greater than RIGHT. No infarct in the cerebellum. Mild volume loss and atrophy. No hippocampal atrophy. Ventricles and extra-axial spaces are normal. No inferior displacement of cerebellar tonsils. The sella turcica and pituitary gland are unremarkable. Dural venous sinuses and [place] of [place] demonstrate no abnormality on this unenhanced studies. Paranasal sinuses: Clear. Mastoid air cells: Normal. Calvarium and scalp: Intact. MR/MR head wo con* [id number] IMPRESSION: 1. No acute infarct. No hemorrhage or mass effect. 2. Numerous supratentorial white matter lesions are noted bilaterally. These w alexus matter lesions have increased since 2016 and below size and number. More t walker expected for a patient of this age. Consider small vessel disease, diabetes , hypertension, migraines and smoking history. 3. New bilateral small vessel changes in the becca, LEFT greater than RIGHT. 4. No hippocampal atrophy. 5. Mild cerebral atrophy.
== END 2025-04-01 09:25 | disposition home or self-care (01) ==
LOC: RAD 09:26
PROVIDERS: Family Provider Internal Medicine Rheumatology; PCP Family Medicine; Visit Provider Specialist
DX: G43.711 Chronic migraine without aura, intractable, with status migrainosus (principal)
CPT/HCPCS: 70551

== ENCOUNTER → 2025-04-06 08:37 | Outpatient (BNVA) | payer MEDICARE, BC, SELFPAY | PROVIDERS: Family Provider Internal Medicine Rheumatology; PCP Family Medicine; Visit Provider Nurse Practitioner Family | DX: L57.8 Other skin changes due to chronic exposure to nonionizing radiation (principal); L81.4 Other melanin hyperpigmentation; M34.83 Systemic sclerosis with polyneuropathy; L82.1 Other seborrheic keratosis; D22.5 Melanocytic nevi of trunk; Z08 Encounter for follow-up examination after completed treatment for malignant neoplasm; Z85.828 Personal history of other malignant neoplasm of skin; Z80.8 Family history of malignant neoplasm of other organs or systems | CPT/HCPCS: 99213 ==

== ENCOUNTER 2025-04-07 09:07 | Outpatient (CLI) | payer MEDICARE, BC, SELFPAY | END 2025-04-07 09:08 | disposition home or self-care (01) | LOC: LAB 09:08 | PROVIDERS: PCP Family Medicine; Visit Provider Internal Medicine Rheumatology | DX: M79.10 Myalgia, unspecified site (principal) | CPT/HCPCS: 36415; 82085; 82550 ==

== ENCOUNTER → 2025-04-11 13:39 | Outpatient (BNVA) | payer MEDICARE, BC, SELFPAY | PROVIDERS: PCP Family Medicine; Visit Provider Internal Medicine | DX: J45.20 Mild intermittent asthma, uncomplicated (principal); R91.8 Other nonspecific abnormal finding of lung field; M34.9 Systemic sclerosis, unspecified; Z71.6 Tobacco abuse counseling; F17.210 Nicotine dependence, cigarettes, uncomplicated; J44.9 Chronic obstructive pulmonary disease, unspecified | CPT/HCPCS: 99214; 99406; Q3014 ==

== ENCOUNTER → 2025-04-14 09:50 | Outpatient (BNVA) | payer MEDICARE, BC, SELFPAY | PROVIDERS: PCP Family Medicine; Referring Provider Family Medicine; Visit Provider Specialist | DX: G43.711 Chronic migraine without aura, intractable, with status migrainosus (principal); M54.81 Occipital neuralgia; F41.9 Anxiety disorder, unspecified; F32.A Depression, unspecified; G50.0 Trigeminal neuralgia; G62.89 Other specified polyneuropathies; R00.2 Palpitations; M34.9 Systemic sclerosis, unspecified; J84.89 Other specified interstitial pulmonary diseases; R20.0 Anesthesia of skin; G93.39 Other post infection and related fatigue syndromes; F17.218 Nicotine dependence, cigarettes, with other nicotine-induced disorders; R03.0 Elevated blood-pressure reading, without diagnosis of hypertension | CPT/HCPCS: 36415; 82607; 82746; 84439; 84443; 99215 ==

== ENCOUNTER 2025-04-15 08:22 | Oncology outpatient (recurring) (ONCR) | payer MEDICARE, BC, SELFPAY ==
--- NOTE | 2025-04-15 08:30 | CT_ITS ---
WS: [email or web address] LDCT LUNG CANCER SCREENING TECHNIQUE: Noncontrast CT of the chest with coronal and sagittal reformatted images. CLINICAL INFORMATION: Smoking hx COMPARISON: 2022 DLP: 48.97 mGy.cm DIvol: Mean CTDIvol: 0.70 (mGy) All CT scans at [facility] use at least one of these dose optimization techniques: automated exposure control; mA and/or kV adjustment per patient size (includes targeted exams where dose is matched to clinical indication); or iterative reconstruction. FINDINGS: Fibrosis in the lung apices. 5 mm RIGHT perifissural nodule. 3 mm nodule superior segment RIGHT lower lobe. A few scattered micronodules bilaterally. A few calcified granulomas. Aberrant RIGHT subclavian artery. Minimal aortic calcification. No mediastinal or hilar lymphadenopathy. Calcified mediastinal and hilar lymph nodes. Small esophageal hiatal hernia. Adrenal glands are normal. Mild thoracic kyphosis. CT/CT lung screening [id number] IMPRESSION: LUNG-RADS: 2-Benign Appearance or Behavior FOLLOW UP: 12 Month: Continue annual screening with LDCT
== END 2025-05-06 23:59 | disposition home or self-care (01) ==
PROVIDERS: PCP Family Medicine; Visit Provider Internal Medicine
DX: Z12.2 Encounter for screening for malignant neoplasm of respiratory organs (principal); F17.218 Nicotine dependence, cigarettes, with other nicotine-induced disorders; J84.10 Pulmonary fibrosis, unspecified; R91.8 Other nonspecific abnormal finding of lung field; I89.8 Other specified noninfective disorders of lymphatic vessels and lymph nodes; K44.9 Diaphragmatic hernia without obstruction or gangrene; M40.294 Other kyphosis, thoracic region
CPT/HCPCS: 71271

== ENCOUNTER 2025-05-04 07:57 | Outpatient (CLI) | payer MEDICARE, BC, SELFPAY ==
[2025-05-04 08:24] VITALS: PULSE 89; RESP 18; O2SAT 98
== END 2025-05-04 07:58 | disposition home or self-care (01) ==
LOC: RT 07:59
PROVIDERS: PCP Family Medicine; Visit Provider Internal Medicine
DX: J44.9 Chronic obstructive pulmonary disease, unspecified (principal)
CPT/HCPCS: 94060; 94726; 94729; J7613

== ENCOUNTER → 2025-05-09 13:49 | Outpatient (BNVA) | payer MEDICARE, BC, SELFPAY | PROVIDERS: PCP Family Medicine; Visit Provider Internal Medicine | DX: J45.20 Mild intermittent asthma, uncomplicated (principal); R91.8 Other nonspecific abnormal finding of lung field; M34.9 Systemic sclerosis, unspecified; F17.210 Nicotine dependence, cigarettes, uncomplicated | CPT/HCPCS: 99214; Q3014 ==

== ENCOUNTER 2025-05-23 09:43 | Emergency (ER) | payer MEDICARE, BC, SELFPAY ==
[2025-05-23 09:46] VITALS: BP 116/71; PULSE 98; RESP 16; TEMP 36.7; O2SAT 100; BMI 19.3
--- NOTE | 2025-05-23 09:52 | XR_ITS ---
WS: [email or web address] XR chest 1V portable [id number] REASON FOR EXAM: dyspnea/cough FINDINGS: The chest is unchanged compared to 12/19/2021. The heart and the mediastinum are within normal limits. Moderate calcified granulomatous disease in both hemithoraces. No acute pulmonary parenchymal or pleural abnormality. Mild degenerative spondylosis in the mid and lower thoracic spine. XR/XR chest 1V portable [id number] IMPRESSION: Stable chest without acute abnormality.
--- NOTE | 2025-05-23 09:55 | CT_ITS ---
WS: [email or web address] CT HEAD TECHNIQUE: Noncontrast CT of the head obtained from the skullbase to the vertex. CLINICAL INFORMATION: Symptoms of acute stroke COMPARISON: MRI 04/01/2025 DLP: All CT scans at [facility] use at least one of these dose optimization techniques: automated exposure control; mA and/or kV adjustment per patient size (includes targeted exams where dose is matched to clinical indication); or iterative reconstruction. FINDINGS: No evidence of intracranial hemorrhage or mass effect. Ventricular system and basal cisterns are patent. Moderate small vessel changes with mild parenchymal volume loss. No extra-axial fluid collections. No evidence of mass or mass effect. Mild vascular calcification. Paranasal sinuses and mastoid air cells are well aerated. .Normal visualized soft tissues. CT/CT head thrombolytic [id number] IMPRESSION: 1. No evidence of intracranial hemorrhage or mass effect. 2. No acute intracranial findings. Notified Sigifredo Addison DO at 05/23/2025 10:09 AM.
--- NOTE | 2025-05-23 09:56 | ECG_ITS ---
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 Measurements Intervals [place] Rate: 81 P: 81 DE: 154 QRS: 76 QRSD: 85 T: 55 QT: 369 QTc: 430 Interpretive Statements SINUS RHYTHM POSSIBLE RIGHT VENTRICULAR CONDUCTION DELAY [RSR (QR) IN V1/V2] Compared to ECG 09/09/2019 09:46:31 No significant changes Electronically Signed On 05-25-2025 09:50:47 MACHINE ERECTOR by Henry Mensah M.D. [email or web address]
[2025-05-23 10:13] LABS: Hematocrit 43.4 % (36-47); Hemoglobin 14.30 g/dL (11.27-16.99); Mean Corpuscular HGB Conc 32.9 g/dL (30-55); Mean Corpuscular Hemoglobin 30.8 pg (27-33); Mean Corpuscular Volume 93.5 fl (85-98); Platelet Count 351 10^3/cmm (157-399); Red Blood Count 4.64 10^6/uL (3.85-5.65); White Blood Count 11.77 10^3/uL (3.29-11.43)
--- NOTE | 2025-05-23 10:24 | ED_ITS ---
HPI - Neuro Symptoms/Deficit 2 General: Chief Complaint: Neuro Symptoms/Deficit Stated Complaint: Sob, shaky and passed out Time Seen by Provider: 05/23/25 09:52 History of Present Illness: 64-year-old female who presents to the e mergency room complaining of shortness of breath and shaking. She had what was described by the family's unresponsive episode I witnessed several of these episodes that she is awake and responsive during them she moves her arms laterally. Legs are not involved. She has a very irregular neurologic exam. Stroke score is very difficult to evaluate because of her response that she has bilateral symptoms. Stroke alert was called. She is intermittently aphasic as well. Associated symptoms: Deny chest pain Related Data Home Medications ?Medication ?Instructions ?Recorded ?Confirmed Medical Marijuana Gummies PO 02/15/22 05/09/25 diclofenac sodium 1 % topical gel 4 g topical QID PRN 02/15/22 05/09/25 (Voltaren Arthritis Pain) Previous Rx's ?Medication ?Instructions ?Recorded alprazolam 0.25 mg tablet 0.25 mg PO DAILY PRN anxiety #90 02/03/25 tabs amitriptyline 25 mg tablet 25 mg PO .AT BEDTIME #90 ta bs 02/03/25 diltiazem HCl 240 mg capsule,24 240 mg PO DAILY #90 ca ps 02/03/25 hr,extended release ezetimibe 10 mg tablet (Zetia) 10 mg PO DAILY #90 tabs 02/03/25 mycophenolate mofetil 500 mg 1,000 mg (2 x 500 mg) PO DAILY 03/14/25 tablet (CellCept) #180 tabs galcanezumab-gnlm 120 mg/mL 120 mg SUBCUT Q30D #1 mL 0 03/15/25 subcutaneous pen injector (Emgality Pen) galcanezumab-gnlm 120 mg/mL 240 mg (2 mL) SUBCUT ONCE #2 mL 03/15/25 subcutaneous pen injector (Emgality Pen) varenicline tartrate 0.5 mg (11)-1 See Rx Instructions PO PER PKG DIR 04/11/25 mg (42) tablets in a dose pack #53 ea (Chantix Starting Month Box) citalopram 20 mg tablet 40 mg (2 x 20 mg) PO DAILY # 120 04/14/25 tabs cyanocobalamin (vitamin B-12) See Rx Instructions IM . COMPLEX 1 04/26/25 1,000 mcg/mL injection solution week #10 mL syringe with needle, safety 1 mL #50 ea 04/28/25 25 gauge x 1 (Easy Touch FlipLock Syringe) Allergies Allergy/AdvReac Type Severity Reaction Status Date / Time No Known Allergies Allergy Verified 05/09/25 14:00 Review of Systems 2 Const: Denies: fever(s) or chills Card: Denies: chest pain Resp: Denies: dyspnea GI: Denies: abdominal pain : Denies: dysuria, urinary frequency or urinary urgency Musc: Denies: neck pain or back pain Skin/Breast: Denies: rash PFSH ED 2 PFSH: Medical History Asthma Scl-[id number] antibody positive Immunization counseling Pelvic pain Lumbago Bilateral renal stones High risk medication use [place] grade A esophagitis Esophageal dilatation Family history of melanoma Rash Palpitation Shortness of breath H/O uterine prolapse H/O fracture of hip Immunosuppression Recurrent UTI Peripheral demyelinating neuropathy Osteoporosis Trigeminal neuralgia Interstitial lung disease due to connective tissue disease Surgical History History of biopsy of temporal artery 08/19/2016 S/P dilatation of esophageal stricture Status post hip surgery Right 2017 Left 2017 S/P appendectomy H/O: hysterectomy H/O shoulder surgery Family History Mother , 74 Cancer Brain tumor Family/Other Hypertension Cancer Father , Tumor in nasal cavity AT AGE 81 Cancer Hyperlipidemia Denies family history of Colon cancer Ovarian cancer Diabetes Heart disease Breast cancer Uterine cancer Thyroid disease Stroke Social History Smoking and tobacco/nicotine status: light tobacco/nicotine user (6-7 cigarettes X 40 years) cigarettes Packs smoked per day: 0.5 Years cigarettes smoked: 42 [ Other cigarette details: Started 1980] Female Reproductive History: Spontaneous abortions: No NIH stroke score 2 NIHSS: Level Of Consciousness - 1a: 0 Level Of Consciousness Questions - 1b: Both Correct Level Of Consciousness Commands - 1c: Both Correct Best Gaze - 2: Normal Visual [place] - 3: No Visual Loss Facial Palsy - 4: N ormal Motor Arm Right - 5: Drift Motor Arm Left - 5: Drift Motor Leg Right - 6: Drift Motor Leg Left - 6: Drift Limb Ataxia - 7: Present In Two Limbs Sensory - 8: Normal Best Language - 9: Mild/Moderate Aphasia D ysarthia - 10: Mild/Moderate Dysarthia Extinction And Inattention - 11: 0 Score: Total Score: 8 Physical Exam 2 Const: GENERAL APPEARANCE: cooperative ORIENTATION/CONSCIOUSNESS: Yes awake HENMT: COMMON NORMALS: normocephalic, atraumatic and hearing grossly normal bilaterally HEAD & SCALP: normocephalic and atraumatic Resp: COMMON NORMALS: normal respiratory effort, No retractions, No use of accessory muscles and clear to auscultation bilaterally AUSCULTATION: clear to auscultation bilaterally Cardio: COMMON NORMALS: regular rate, regular rhythm and No murmurs present (Cardio) RATE: regular rate RHYTHM: regular rhythm GI: COMMON NORMALS: Soft to palpation and No hepatosplenomegaly present A USCULTATION: Yes normoactive bowel sounds PALPATION: Yes Soft to palpation, No Tenderness to palpation present (GI), No Guarding due to palpation present (GI) and Yes No hepatosplenomegaly present Extremity: COMMON NORMALS: normal to inspection, capillary refill normal, no clubbing, cyanosis or edema, no calf tenderness and no pedal edema Skin: COMMON NORMALS: no rashes or lesions noted GENERAL SKIN EXAM: no rashes or lesions noted Course 2 Vital Signs: Vital signs: Vital Signs Temperature 98.0 F 05/23/25 09:46 Pulse Rate 87 05/23/25 11:40 Respiratory Rate 18 05/23/25 11:40 Blood Pressure 106/69 05/23/25 11:40 Pulse Oximetry 99 05/23/25 11:40 Oxygen Delivery Me thod Room Air 05/23/25 11:08 MDM - Neuro Symptoms/Deficit Medical Decision Making Patient has a stroke score of 8 but all of her symptoms are bilateral. She has had this type of presentation before I contacted Dr. Mccain who is very familiar with her. She states she has functional neurologic episodes. Discussed with the patient after the discussion she began to improve without medication we had given her Ativan a Dr. Mccain suggestion she completely resolved after that she is awake ambulatory talking has no no neurologic deficits at this time. Repeat stroke score is now 0. Discussed with patient and family we will discharge her home have her follow-up with Dr. Mccain in the next 7 to 10 days. Medical Records I reviewed the patient's medical records. Lab Data I reviewed the patient's lab results. 05/23/25 10:05 05/23/25 10:05 Radiology Impressions Chest X-Ray 05/23/25 09:52 IMPRESSION: Stable chest without acute abnormality. Head CT 05/23/25 09:55 IMPRESSION: 1. No evidence of intracranial hemorrhage or mass effect. 2. No acute intracranial findings. Notified Sigifredo Addison DO at 05/23/2025 10:09 AM. Laboratory Results WBC 11.77 10^3/uL (3.29-11.43) H 05/23/25 10:05 RBC 4.64 10^6/uL (3.85-5.65) 05/23/25 10:05 Hgb 14.30 g/dL (11.27-16.99) 05/23/25 10:05 Hct 43.4 % (36-47) 05/23/25 10:05 MCV 93.5 fl (85-98) 05/23/25 10:05 MCH 30.8 pg (27-33) 05/23/25 10:05 MCHC 32.9 g/dL (30-55) 05/23/25 10:05 RDW 12.5 % (12.1-15.1) 05/23/25 10:05 Plt Count 351 10^3/cmm (157-399) 05/23/25 10:05 MPV 8.6 fL (7.4-10.4) 05/23/25 10:05 Lymph % (Auto) Not Reportable 05/23/25 10:05 Heard % (Auto) Not Reportable 05/23/25 10:05 Lymph # (Auto) Not Reportable 05/23/25 10:05 Heard # (Auto) Not Reportable 05/23/25 10:05 Total Counted 100 (0-100) 05/23/25 10:05 Atypical Lymphs % 17.0 % (0-5) H 05/23/25 10:05 Absolute Neutrophils 5.2 10^3/cmm (1.4-6.5) 05/23/25 10:05 Segmented Neutrophils 44 % 05/23/25 10:05 Band Neutrophils 0.0 % 05/23/25 10:05 Absolute Lymphocytes 6.1 10^3/cmm (1.2-3.4) H 05/23/25 10:05 Lymphocytes (Manual) 35 % 05/23/25 10:05 Monocytes (Manual) 4.0 % 05/23/25 10:05 Absolute Monocytes 0.5 10^3/cmm (0.1-0.6) 05/23/25 10:05 Eosinophils (Manual) 0 % 05/23/25 10:05 Absolute Eosinophils 0.0 10^3/cmm (0.0-0.7) 05/23/25 10:05 Basophils (Manual) 0.0 % 05/23/25 10:05 Absolute Basophils 0.0 10^3/cmm (0.0-0.2) 05/23/25 10:05 Platelet Estimate Normal (Normal) 05/23/25 10:05 PT 12.50 SECONDS (12.1-14.9) 05/23/25 10:05 INR 0.87 (0.8-1.2) 05/23/25 10:05 APTT 26.9 SECONDS (23.9-36.7) 05/23/25 10:05 Sodium 137 mmol/L (136-145) 05/23/25 10:05 Potassium 4.0 mmol/L (3.5-5.1) 05/23/25 10:05 Chloride 97 mmol/L (98-107) L 05/23/25 10:05 Carbon Dioxide 21 mmol/L (22-29) L 05/23/25 10:05 Anion Gap 23.0 (5-19) H 05/23/25 10:05 BUN 7 mg/dL (8-23) L 05/23/25 10:05 Creatinine 0.9 mg/dL (0.5-0.9) 05/23/25 10:05 GFR Calculation 62.8 mL/min (90-130) L 05/23/25 10:05 Glucose 109 mg/dL (65-115) 05/23/25 10:05 POC Glucose 106 mg/dL (70-110) 05/23/25 09:54 Calculated Osmolality 283 mOsm/kg (285-295) L 05/23/25 10:05 Calcium 9.4 mg/dL (8.5-10.5) 05/23/25 10:05 Total Bilirubin 0.3 mg/dL (0.15-1.2) 05/23/25 10:05 AST 18 U/L (0-32) 05/23/25 10:05 ALT 13 U/L (0-33) 05/23/25 10:05 Alkaline Phosphatase 96 U/L (35-105) 05/23/25 10:05 Troponin T Baseline < 6 ng/L (0-10) 05/23/25 10:05 Total Protein 6.8 g/dL (6.6-8.7) 05/23/25 10:05 Albumin 4.7 g/dL (3.5-5.2) 05/23/25 10:05 Globulin 2.1 g/dL (1.3-4.6) 05/23/25 10:05 Urine Color Yellow (Yellow) 05/23/25 11:24 Urine Appearance Clear (CLEAR) 05/23/25 11:24 Urine pH 6.5 (5-7) 05/23/25 11:24 Ur Specific [place] 1.009 (1.005-1.030) 05/23/25 11:24 Urine Protein Negative (Negative) 05/23/25 11:24 Urine Glucose (UA) Negative (Normal) 05/23/25 11:24 Urine Ketones Negative (Negative) 05/23/25 11:24 Urine Blood Trace (Negative) A 05/23/25 11:24 Urine Nitrate Negative (Negative) 05/23/25 11:24 Urine Bilirubin Negative (Negative) 05/23/25 11:24 Urine Urobilinogen 0.2 mg/dL (Negative) 05/23/25 11:24 Ur Leukocyte Esterase Trace (Negative) A 05/23/25 11:24 Urine RBC 0-2 /hpf (0-2) 05/23/25 11:24 Urine WBC 0-5 /hpf (0-5) 05/23/25 11:24 Ur Squamous Epith Cells 0-5 /hpf (0-5) 05/23/25 11:24 Amorphous Sediment Not Reportable 05/23/25 11:24 Urine Bacteria None seen /hpf (NONE) 05/23/25 11:24 Hyaline Casts 0-4 /lpf H 05/23/25 11:24 Urine Opiates Screen Negative ng/mL (Negative) 05/23/25 11:24 Ur Barbiturates Screen Negative ng/mL (Negative) 05/23/25 11:24 Ur Phencyclidine Scrn Negative ng/mL (Negative) 05/23/25 11:24 Ur Amphetamines Screen Negative ng/mL (Negative) 05/23/25 11:24 U Benzodiazepines Scrn Positive ng/mL (Negative) H 05/23/25 11:24 Urine Cocaine Screen Negative ng/mL (Negative) 05/23/25 11:24 U Marijuana (THC) Screen Positive ng/mL (Negative) H 05/23/25 11:24 All radiology interpretation(s) finalized by discharge EKG Data EKG 1: I personally reviewed and interpreted this EKG as follows: Interpretation: EKG 05/23/2025 9:56 AM normal sinus rhythm ID interval 154 QTc 430 rate of [address] changes no ST elevation compared to EKG 09/09/2019 no significant change Discharge Plan Discharge Patient Disposition: Home Clinical Impression: Functional neurological symptom disorder with abnormal movement Condition: Stable Prescriptions: No Action Medical Marijuana Gummies PO Patient Comments: Edible mycophenolate mofetil [CellCept] 500 mg tablet 1,000 mg PO DAILY Qty: 180 1RF citalopram 20 mg tablet 40 mg PO DAILY Qty: 120 3RF varenicline tartrate [Chantix Starting Month Box] 0.5 mg (11)- 1 mg (42) tablets,dose pack See Rx Instructions PO PER PKG DIR Qty: 53 0RF Rx Instructions: PO PER PKG DIR diclofenac sodium [Voltaren Arthritis Pain] 1 % gel 4 g topical QID PRN Rx Instructions: apply to single knee, ankle, foot; for foot includes sole/toes/top of foot alprazolam 0.25 mg tablet 0.25 mg PO DAILY PRN (Reason: anxiety) Qty: 90 1RF ezetimibe [Zetia] 10 mg tablet 10 mg PO DAILY Qty: 90 3RF diltiazem HCl 240 mg capsule,extended release 24 hr 240 mg PO DAILY Qty: 90 3RF amitriptyline 25 mg tablet 25 mg PO .AT BEDTIME Qty: 90 3RF Emgality Pen 120 mg/mL pen injector 240 mg SUBCUT ONCE Qty: 2 0RF Emgality Pen 120 mg/mL pen injector 120 mg SUBCUT Q30D Qty: 1 11RF cyanocobalamin (vitamin B-12) 1,000 mcg/mL solution See Rx Instructions IM .COMPLEX 7 Days Qty: 10 0RF Rx Instructions: Inject 1ml intramuscularly once a day for 3 days, then once a week for 4 weeks, then once monthly for one year intramuscularly; (DME) Easy Touch FlipLock Syringe 1 mL 25 gauge x 1 syringe See Rx Instructions .ROUTE .MEDSUPPLY Qty: 50 0RF Rx Instructions: As directed Discharge Orders: Discharge ED (Routine); Ordered 05/23/25 Ordered By: Sigifredo Addison Referrals: Berto Heck, [Primary Care Provider, Family Practice] Discharge Diet: Usual diet Discharge Activity: Resume usual activity Patient Instructions: Opioid Safety, Pain Management, Patient Portal & Edwin Instructions Activity Restrictions/Additional Instructions: Thank you for choosing [facility] for your healthcare needs today. It is very important that you follow up as instructed or that you return to the Emergency Department should you have concerns or if your condition changes or worsens in any way. Emergency department visits are focused on emergent conditions, in some cases you may require further evaluation on an outpatient basis. You were seen in the emergency room with complaints of difficulty with speaking and movement. CT of your head was negative. There is no evidence at this time of stroke this appears to be more what is called a functional neurologic disorder. We discussed with the on-call neurologist Dr. Mccain who is very familiar with your case given your presenting symptoms she agreed with this and recommended Ativan which did improve your symptoms she recommends we discharge you home and have you follow-up with her in the office within the next 7 to 10 days (Please note that included in your discharge packet is information concerning opioid safety and pain management. This information is given to all patients were discharged from the ER regardless of their discharge diagnosis or the medicines they usually take or are prescribed.) Print Language: Iraqi Coding Level of Care Code ED Sheeter Operator for Erin Mosley
[2025-05-23 10:31] LABS: INR 0.87 (0.8-1.2); Prothrombin Time 12.50 SECONDS (12.1-14.9)
[2025-05-23 10:32] LABS: Partial Thromboplastin Time 26.9 SECONDS (23.9-36.7)
[2025-05-23 10:35] VITALS: BP 119/73; BP 123/58; BP 128/63; PULSE 87; PULSE 88; PULSE 90
[2025-05-23 10:35] LABS: Alanine Aminotransferase 13 U/L (0-33); Albumin Level 4.7 g/dL (3.5-5.2); Alkaline Phosphatase 96 U/L (35-105); Anion Gap 23.0 (5-19); Aspartate Amino Transferase 18 U/L (0-32); Blood Urea Nitrogen 7 mg/dL (8-23); Calcium 9.4 mg/dL (8.5-10.5); Carbon Dioxide 21 mmol/L (22-29); Chloride 97 mmol/L (98-107); Globulin 2.1 g/dL (1.3-4.6); Glucose 109 mg/dL (65-115); Osmolality Calculated 283 mOsm/kg (285-295); Potassium 4.0 mmol/L (3.5-5.1); Sodium 137 mmol/L (136-145); Total Protein 6.8 g/dL (6.6-8.7); Troponin(5th) Baseline < 6 ng/L (0-10)
--- NOTE | 2025-05-23 10:37 | PC.NURSE ---
pt not willing to get up to commode, pt is nonverbal at this time, but shaking head no.
[2025-05-23 10:38] VITALS: BP 118/73; PULSE 82; RESP 22; O2SAT 100
[2025-05-23] MEDS: LORazepam 2 mg/mL INJ 1 mL 1 MG IVP (10:45)
[2025-05-23 10:48] LABS: Absolute Segmented Neutrophil 5.2 10/cmm (1.6-7.1); Band Neutrophils Absolute 0.0 10^3/cmm (0.0-1.2); Slide Review Slide Review Perform; Total Cells Counted 100 (0-100)
[2025-05-23 10:49] LABS: Atypical Lymphs 17.0 % (0-5)
[2025-05-23 11:08] VITALS: BP 113/53; PULSE 88; RESP 22; O2SAT 94
--- NOTE | 2025-05-23 11:19 | PC.NURSE ---
pt ambulated to doorway in ER 12, states was dizzy/unsteady. ambulated very slow with x2 assist. pt ambulation improving, states she can feel her feet now, whereas pt was unable to bear weight prior.
[2025-05-23 11:39] LABS: Glucose Urine UA Negative (Normal); Nitrate Urine Negative (Negative); Specific Gravity, Urine 1.009 (1.005-1.030)
[2025-05-23 11:40] VITALS: BP 106/69; PULSE 87; RESP 18; O2SAT 99
[2025-05-23 11:44] LABS: Add Urine Microscopic? YES
[2025-05-23 11:45] LABS: PCP Screen Urine Negative (Negative)
== END 2025-05-23 11:44 | disposition home or self-care (01) ==
PROVIDERS: Emergency Provider Family Medicine; PCP Family Medicine
DX: F44.4 Conversion disorder with motor symptom or deficit (principal); F17.210 Nicotine dependence, cigarettes, uncomplicated
CPT/HCPCS: 36415; 36416; 70450; 71045; 80053; 80306; 81001; 82962; 84484; 85007; 85025; 85610; 85730; 93005; 96374; 99285; J2060

== ENCOUNTER 2025-05-24 15:09 | Outpatient (CLI) | payer MEDICARE, BC, SELFPAY ==
--- NOTE | 2025-05-24 16:00 | MR_ITS ---
WS: [id number] MRA ANGIOGRAPHY [place] HISTORY: G31.9 - Degenerative disease of nervous system, unspecified COMPARISON: 06/19/2016 TECHNIQUE: 3-D MR angiography is performed of the [place]. All images are reviewed including source images. Distal vertebral and basilar arteries are intact with no significant stenosis or plaque. Posterior cerebral arteries are normal course and caliber. Posterior communicating arteries are both patent. Intracranial portion of the internal carotid arteries are normal course and caliber. No significant atherosclerosis, stenosis or aneurysm identified. Middle and anterior cerebral arteries are both patent with no significant disease. Anterior communicating artery is also normal. MR/MR angio head wo con [id number] IMPRESSION: Normal MRA [place].
--- NOTE | 2025-05-24 16:00 | MR_ITS ---
WS: [id number] MRI BRAIN WITHOUT CONTRAST HISTORY: G45.9 - Transient cerebral ischemic attack, unspecified COMPARISON: MRI head 04/01/[address] head 05/23/2025 TECHNIQUE: Diffusion imaging, multiplanar T1, T2 and FLAIR imaging obtained. No evidence for acute infarct or hemorrhage. [place]oley-white matter differentiation is normal. Numerous scattered T2 and FLAIR signal hyperintensities in the supratentorial white matter. Similar distribution and size compared to 04/01/2025. There are numerous foci of increased signal more than expected for patient of this age for angiopathic disease. No large infarct. No hemorrhage. Mild bilateral increased signal in the [place] LEFT greater than RIGHT is stable. No significant hippocampal atrophy. Ventricles and extra-axial spaces are normal. No inferior displacement of cerebellar tonsils. The sella turcica and pituitary gland are unremarkable. Dural venous sinuses and [place] demonstrate no abnormality on this unenhanced studies. Paranasal sinuses: Clear. Mastoid air cells: Normal. Calvarium and scalp: Intact. MR/MR head wo con* [id number] IMPRESSION: 1. Normal diffusion imaging. No acute infarct. 2. Numerous supratentorial white matter lesions as described on 04/01/2025. No progression. The extent of white matter disease is more than noted typically in a patient of this age. Consider microangiopathic disease, diabetes, hypertensi on, migraines and smoking. 3. Mild prior ischemic change in the [place] bilateral. Stable. 4. No hippocampal atrophy.
== END 2025-05-24 15:10 | disposition home or self-care (01) ==
LOC: RAD 15:11
PROVIDERS: PCP Family Medicine; Visit Provider Family Medicine
DX: G45.9 Transient cerebral ischemic attack, unspecified (principal); G61.0 Guillain-Barre syndrome; G31.9 Degenerative disease of nervous system, unspecified; G62.89 Other specified polyneuropathies; R79.89 Other specified abnormal findings of blood chemistry; E87.6 Hypokalemia; R93.0 Abnormal findings on diagnostic imaging of skull and head, not elsewhere classified; D72.829 Elevated white blood cell count, unspecified
CPT/HCPCS: 36415; 70544; 70551; 80048; 80503; 82607; 83735; 85025; 85651; 86140